=== PATIENT | female | born 1950 | race Caucasian/White ===

== ENCOUNTER → 2016-05-23 | Outpatient (CLI) | payer BC, OTHER ==
[~2016-05-23] MED LIST: ABL10 PO; ASPEC325 PO; ASPI-461 PO; ATV5 PO; B-CO1CAP17 PO; B-COCAP2 PO; CHOLTAB3 PO; CLTP PO; CONJ0.453 PO; CYM60 PO; ERGO1TAB10 PO; FSM70 PO; LAMO100T16 PO; LEVO50TA PO; LITH1TAB10 PO; LORA-741 PO; LPR25 PO; NAPR1TAB9 PO; OMEP20TA PO; OSTEO BIOFLEX PO; OXYC-57 PO; VENL150C56 PO
[2016-05-23 17:51] LABS: ALT/SGPT 20 U/L (12-78); AST/SGOT 17 U/L (15-37); BLOOD UREA NITROGEN 15 mg/dl (7-18); BUN/CREATININE RATIO 15.3 (10-20); CALCIUM 9.7 mg/dl (8.5-10.1); CARBON DIOXIDE 25 mmol/L (21-32); CHLORIDE 103 mmol/L (98-107); CHOLESTEROL 209 mg/dl (0-200); CREATININE 0.99 mg/dl (0.60-1.20); GLUCOSE 82 mg/dl (70-99); POTASSIUM 4.4 mmol/L (3.5-5.1); SODIUM 138 mmol/L (136-145)
[2016-05-23 18:00] LABS: ALKALINE PHOSPHATASE 110 U/L (45-117); CHOLESTEROL/HDL RATIO 2.8; HDL CHOLESTEROL 76 mg/dl; LDL CHOLESTEROL CALCULATED 107 mg/dl; TRIGLYCERIDES 129 mg/dl (0-150); VERY LOW DENSITY LIPOPROT CALC 26 mg/dl
== END | disposition home or self-care (01) ==
LOC: C.LABBFT 14:07
PROVIDERS: ATTEND Internal Medicine
DX: Z00.00 Encounter for general adult medical examination without abnormal findings (principal); F31.81 Bipolar II disorder; M81.0 Age-related osteoporosis without current pathological fracture; Z86.39 Personal history of other endocrine, nutritional and metabolic disease; Z11.59 Encounter for screening for other viral diseases

== ENCOUNTER → 2016-10-10 | Outpatient (CLI) | payer OTHER ==
[2016-10-10 16:45] LABS: ALT/SGPT 20 U/L (12-78); AST/SGOT 11 U/L (15-37); BLOOD UREA NITROGEN 24 mg/dl (7-18); BUN/CREATININE RATIO 26.3 (10-20); CALCIUM 9.5 mg/dl (8.5-10.1); CARBON DIOXIDE 31 mmol/L (21-32); CHLORIDE 106 mmol/L (98-107); CREATININE 0.91 mg/dl (0.60-1.20); GLUCOSE 83 mg/dl (70-99); POTASSIUM 4.9 mmol/L (3.5-5.1); SODIUM 138 mmol/L (136-145)
[2016-10-10 16:48] LABS: ALKALINE PHOSPHATASE 105 U/L (45-117)
[2016-10-14 16:41] LABS: ALBUMIN 4.4 G/DL (3.8-4.8); TOTAL PROTEIN 7.3 G/DL (6.2-8.3)
== END | disposition home or self-care (01) ==
LOC: C.LABBFT 15:33
PROVIDERS: ATTEND Internal Medicine
DX: F31.81 Bipolar II disorder (principal)

== ENCOUNTER 2016-10-31 10:56 | Inpatient (IN) | payer OTHER ==
[~2016-10-31] VITALS: Ht 167.6 cm; Wt 87.2 kg
[~2016-10-31 10:56] MED LIST changes: -ASPI-461 PO; -B-CO1CAP17 PO; -ERGO1TAB10 PO; -LAMO100T16 PO; -LEVO50TA PO; -LITH1TAB10 PO; -LORA-741 PO; -LPR25 PO; -NAPR1TAB9 PO; -OMEP20TA PO; -VENL150C56 PO
[2016-10-31 11:29] LABS: BASO % 1.3 %; BASO ABS # 0.09 K/uL (0-0.2); COMPLETE YES; EOS % 3.2 %; HEMATOCRIT 39.4 % (37-47); IG% 0.1 %; LYMPH % 22.6 %; LYMPH ABS # 1.62 K/uL (1.2-3.4); MEAN CELL VOLUME 92.3 fL (80-100); MEAN CORPUSCULAR HGB CONC 32.5 g/dl (32-36); MEAN PLATELET VOLUME 9.7 fL (7.4-10.4); MONO % 7.8 %; PLATELET COUNT 343 K/uL (130-400); RED BLOOD COUNT 4.27 M/uL (4.2-5.4); WHITE BLOOD COUNT 7.17 K/uL (4.8-10.8)
--- NOTE | 2016-10-31 11:43 | DIAGNOSTIC IMAGING REPORT ---
CHEST ONE VIEW PORTABLE CLINICAL HISTORY: 66 years-old Female presenting with cp . TECHNIQUE: Portable upright AP view of the chest was obtained. COMPARISON: 04/30/2010. FINDINGS: Cardiomediastinal silhouette normal. Lungs and pleural spaces clear. Osseous structures and upper abdomen normal. IMPRESSION: 1. No acute cardiopulmonary disease. Electronically signed by: Danyel Watters M.D. 10/31/2016 11:42 AM Dictated Date/Time: 10/31/2016 11:41 AM
[2016-10-31 11:50] LABS: ALT/SGPT 18 U/L (12-78); AST/SGOT 15 U/L (15-37); BLOOD UREA NITROGEN 11 mg/dl (7-18); BUN/CREATININE RATIO 12.2 (10-20); CALCIUM 9.7 mg/dl (8.5-10.1); CARBON DIOXIDE 26 mmol/L (21-32); CHLORIDE 109 mmol/L (98-107); CREATININE 0.86 mg/dl (0.60-1.20); GLUCOSE 112 mg/dl (70-99); SODIUM 139 mmol/L (136-145)
[2016-10-31] MEDS ORDERED: ASPI-461 PO (11:51)
[2016-10-31 11:55] LABS: ALKALINE PHOSPHATASE 89 U/L (45-117)
[2016-10-31] MEDS ORDERED: LORA-741 PO (11:55)
[2016-10-31] MEDS ORDERED: B-CO1CAP17 PO (11:55)
[2016-10-31] MEDS ORDERED: ERGO1TAB10 PO (11:55)
[2016-10-31] MEDS ORDERED: NAPR1TAB9 PO (11:55)
[2016-10-31] MEDS ORDERED: LAMO100T16 PO (12:05)
[2016-10-31] MEDS ORDERED: LITH1TAB10 PO ×2 (12:05)
[2016-10-31] MEDS ORDERED: VENL150C56 PO (12:05)
[2016-10-31] MEDS ORDERED: LEVO50TA PO (12:05)
--- NOTE | 2016-10-31 12:08 | DIAGNOSTIC IMAGING REPORT ---
ABD/PELVIS NO IV OR ORAL CONT CT DOSE: 894.55 mGycm HISTORY: Pain. Nausea. epigastric abd pain TECHNIQUE: Multiaxial CT images of the abdomen and pelvis were performed without contrast. A dose lowering technique was utilized adhering to the principles of ALARA. COMPARISON STUDY: None. FINDINGS: The lung bases are clear. The unenhanced liver, spleen, gallbladder, pancreas, kidneys, and adrenal glands are within normal limits. No bowel wall thickening or obstruction. The pelvic organs are unremarkable. No suspicious lytic or blastic osseous lesions. IMPRESSION: No significant abnormality identified within the abdomen or pelvis. Normal appendix. Nonobstructive bowel pattern. The above report was generated using voice recognition software. It may contain grammatical, syntax or spelling errors. Electronically signed by: Stephane Zamarripa M.D. 10/31/2016 12:06 PM Dictated Date/Time: 10/31/2016 12:03 PM
[2016-10-31 12:29] LABS: URINE APPEARANCE CLEAR (CLEAR); URINE BILIRUBIN NEG (NEG); URINE COLOR YELLOW; URINE EPITHELIAL CELL AUTO >30 /lpf (0-5); URINE NITRITE NEG (NEG); URINE PH 6.5 (4.5-7.5); URINE SPECIFIC GRAVITY 1.011 (1.000-1.030); UROBILINOGEN NEG (NEG); ZZUR CULT IF INDIC CLEAN CATCH NO
[2016-10-31 12:32] LABS: MANUAL MICROSCOPIC REQUIRED? NO; REVIEW REQ? NO
[2016-10-31] MEDS ORDERED: ASPIRIN 81 MG CHEW PO STA (13:08)
[2016-10-31] MEDS ORDERED: GI COCKTAIL PO ONE (13:15)
[2016-10-31] MEDS ORDERED: ALUMINUM/MAGNESIUM SUSP 30 ML UDC ONE (13:16)
[2016-10-31] MEDS ORDERED: LIDOCAINE HCL 2% VISC SOLN 20 ML UDC ONE (13:16)
[2016-10-31 15:45] VITALS: O2SAT 95; Ht 167.6 cm; Wt 87.2 kg
[2016-10-31] MEDS ORDERED: ZOLPIDEM TARTRATE 5 MG TAB PO PRN (16:00)
[2016-10-31] MEDS ORDERED: MAGNESIUM HYDROXIDE SUSP 30 ML UDC PO PRN (16:00)
[2016-10-31] MEDS ORDERED: MoRPHine SULFATE 2 MG/ML CARP IV PRN (16:00)
[2016-10-31] MEDS ORDERED: NITROGLYCERIN 0.4 MG SL PER TAB CHARGE SL PRN (16:00)
[2016-10-31] MEDS ORDERED: ALUMINUM/MAGNESIUM/SIMETH (MAALOX MAX) 30 ML UDC PO PRN (16:00)
[2016-10-31] MEDS ORDERED: POLYETHYLENE (MIRALAX) 17 GM PACK PO PRN (16:00)
[2016-10-31] MEDS ORDERED: ACETAMINOPHEN 325 MG TAB PO PRN (16:00)
--- NOTE | 2016-10-31 16:08 | EMERGENCY ROOM VISIT NOTE ---
History Report prepared by Malgorzata: Faina Sims Under the Supervision of: Dr. Morgan Amaro D.O. First contact with patient: 11:15 Chief Complaint: CARDIAC ASSESSMENT Stated Complaint: NAUSEA, CHEST PRESSURE, History of Present Illness The patient is a 66 year old female who presents to the Emergency Room for a cardiac assessment of symptoms that started 3 days ago. The patient states that she experienced abdominal pain and chest pain 3 days ago with associated gagging. She states that the pressure in her chest was relieved with burping. The patient has not experienced any chest pain since then. She is unsure of if she experienced shortness of breath when she had the chest pain. She denies any jaw pain or arm pain with the chest pain. The patient is still experiencing upper abdominal pain and states that it feels like there is a "brick" sitting on her abdomen/upper chest. The patient states that the abdominal pain is relieved with cough syrup. The patient is also experiencing nausea and vomiting which started last night. She experienced one episode of vomiting last night. The patient's last bowel movement was yesterday. She states that she called Dr. Thakkar this morning and then can here for further evaluation. The patient still has her gallbladder and appendix. Source of History: patient Onset: 3 days ago Position: chest Quality: other (cardiac assessment) Timing: constant Associated Symptoms: + chest pain (resolved), + nausea, + vomiting, + abdominal pain Note: no jaw pain, no arm pain Review of Systems See HPI for pertinent positives & negatives. A total of 10 systems reviewed and were otherwise negative. Past Medical & Surgical Medical Problems: (1) Bipolar Disorder, Unspecified (2) Osteoporosis Nos Family History Cancer Depression Diabetes mellitus Gallbladder disease Heart disease Hypertension Lung disease Seizures Social History Smoking Status: Former Smoker Alcohol Use: occasionally Marital Status: Housing Status: lives with family Current/Historical Medications Scheduled Aspirin (Aspirin), 1 TAB PO DAILY Ergocalciferol (Vitamin D2), 1 TAB PO DAILY Lamotrigine (Lamictal), 100 MG PO BID Levothyroxine Sodium (Synthroid), 50 MCG PO DAILY [place] Carbonate Ext Rel (Lithobid Ext Rel), 300 MG PO QAM [place] Carbonate Ext Rel (Lithobid Ext Rel), 900 MG PO HS Naproxen (Aleve), 440 MG PO UD Venlafaxine Hcl (Effexor Extended Rel), 150 MG PO BID Vitamin B Cmplx/Vitc/Folic Ac (Nephrocaps), 1 CAP PO DAILY Scheduled PRN Lorazepam (Ativan), 0.5 MG PO TID PRN for Anxiety Allergies Coded Allergies: Iodinated Contrast Media (Verified Allergy, Unknown, `IV IODINE, 04/30/10) Penicillins (Verified Allergy, Unknown, `, 04/30/10) Phenobarbital (Verified Allergy, Unknown, `, 04/30/10) Physical Exam Vital Signs Date Time Temp Pulse Resp B/P (MAP) Pulse Ox O2 Delivery O2 Flow Rate FiO2 10/31/16 15:45 95 Room Air 10/31/16 15:27 65 18 136/75 95 Room Air 10/31/16 13:19 70 18 140/77 96 Room Air 10/31/16 12:09 96 Room Air 10/31/16 12:08 69 18 153/80 96 Room Air 10/31/16 11:20 68 10/31/16 10:58 37.0 81 16 157/89 97 Room Air Physical Exam GENERAL: alert, siting up in bed, disheveled, well appearing, well nourished, no acute distress, non-toxic EYE EXAM: normal conjunctiva OROPHARYNX: no exudate, no erythema, lips, buccal mucosa, and tongue normal and mucous membranes are moist NECK: supple, no nuchal rigidity, no adenopathy, non-tender LUNGS: Clear to auscultation. Normal chest wall mechanics HEART: no murmurs, S1 normal and S2 normal ABDOMEN: abdomen soft, non-tender, normo-active bowel sounds, no masses, no rebound or guarding. BACK: Back is symmetrical on inspection and there is no deformity, no midline tenderness, no CVA tenderness. SKIN: no rashes and no bruising UPPER EXTREMITIES: upper extremities are grossly normal. LOWER EXTREMITIES: No pitting edema. NEURO EXAM: Normal sensorium, cranial nerves II-XII grossly intact, normal speech, no gross weakness of arms, no gross weakness of legs. Medical Decision & Procedures ER Provider Diagnostic Interpretation: Radiology results as stated below per my review and the radiologist's interpretation: CHEST ONE VIEW PORTABLE FINDINGS: Cardiomediastinal silhouette normal. Lungs and pleural spaces clear. Osseous structures and upper abdomen normal. IMPRESSION: 1. No acute cardiopulmonary disease. Electronically signed by: Danyel Watters M.D. 10/31/2016 11:42 AM Dictated Date/Time: 10/31/2016 11:41 AM ABD/PELVIS NO IV OR ORAL CONT FINDINGS: The lung bases are clear. The unenhanced liver, spleen, gallbladder, pancreas, kidneys, and adrenal glands are within normal limits. No bowel wall thickening or obstruction. The pelvic organs are unremarkable. No suspicious lytic or blastic osseous lesions. IMPRESSION: No significant abnormality identified within the abdomen or pelvis. Normal appendix. Nonobstructive bowel pattern. The above report was generated using voice recognition software. It may contain grammatical, syntax or spelling errors. Electronically signed by: Stephane Zamarripa M.D. 10/31/2016 12:06 PM Dictated Date/Time: 10/31/2016 12:03 PM Laboratory Results 10/31/16 11:17 Red Blood Count 4.27, Mean Corpuscular Volume 92.3, Mean Corpuscular Hemoglobin 30.0, Mean Corpuscular Hemoglobin Concent 32.5, Mean Platelet Volume 9.7, Neutrophils (%) (Auto) 65.0, Lymphocytes (%) (Auto) 22.6, Monocytes (%) (Auto) 7.8, Eosinophils (%) (Auto) 3.2, Basophils (%) (Auto) 1.3, Neutrophils # (Auto) 4.66, Lymphocytes # (Auto) 1.62, Monocytes # (Auto) 0.56, Eosinophils # (Auto) 0.23, Basophils # (Auto) 0.09 10/31/16 11:17 Test 10/31/16 11:17 10/31/16 12:10 White Blood Count 7.17 K/uL (4.8-10.8) Red Blood Count 4.27 M/uL (4.2-5.4) Hemoglobin 12.8 g/dL (12.0-16.0) Hematocrit 39.4 % (37-47) Mean Corpuscular Volume 92.3 fL (80-100) Mean Corpuscular Hemoglobin 30.0 pg (25-34) Mean Corpuscular Hemoglobin Concent 32.5 g/dl (32-36) Platelet Count 343 K/uL (130-400) Mean Platelet Volume 9.7 fL (7.4-10.4) Neutrophils (%) (Auto) 65.0 % Lymphocytes (%) (Auto) 22.6 % Monocytes (%) (Auto) 7.8 % Eosinophils (%) (Auto) 3.2 % Basophils (%) (Auto) 1.3 % Neutrophils # (Auto) 4.66 K/uL (1.4-6.5) Lymphocytes # (Auto) 1.62 K/uL (1.2-3.4) Monocytes # (Auto) 0.56 K/uL (0.11-0.59) Eosinophils # (Auto) 0.23 K/uL (0-0.5) Basophils # (Auto) 0.09 K/uL (0-0.2) RDW Standard Deviation 43.3 fL (36.4-46.3) RDW Coefficient of Variation 12.8 % (11.5-14.5) Immature Granulocyte % (Auto) 0.1 % Immature Granulocyte # (Auto) 0.01 K/uL (0.00-0.02) Anion Gap 4.0 mmol/L (3-11) Est Creatinine Clear Calc Drug Dose 71.1 ml/min Estimated GFR () 81.6 Estimated GFR (Non- 70.4 BUN/Creatinine Ratio 12.2 (10-20) Calcium Level 9.7 mg/dl (8.5-10.1) Total Bilirubin 0.3 mg/dl (0.2-1) Direct Bilirubin < 0.1 mg/dl (0-0.2) Aspartate Amino Transf (AST/SGOT) 15 U/L (15-37) Alanine Aminotransferase (ALT/SGPT) 18 U/L (12-78) Alkaline Phosphatase 89 U/L (45-117) Troponin I < 0.015 ng/ml (0-0.045) Total Protein 7.5 gm/dl (6.4-8.2) Albumin 3.8 gm/dl (3.4-5.0) Lipase 280 U/L (73-393) Urine Color YELLOW Urine Appearance CLEAR (CLEAR) Urine pH 6.5 (4.5-7.5) Urine Specific [place] 1.011 (1.000-1.030) Urine Protein NEG (NEG) Urine Glucose (UA) NEG (NEG) Urine Ketones NEG (NEG) Urine Occult Blood TRACE (NEG) Urine Nitrite NEG (NEG) Urine Bilirubin NEG (NEG) Urine Urobilinogen NEG (NEG) Urine Leukocyte Esterase TRACE (NEG) Urine WBC (Auto) 1-5 /hpf (0-5) Urine RBC (Auto) 5-10 /hpf (0-4) Urine Hyaline Casts (Auto) 0 /lpf (0-5) Urine Epithelial Cells (Auto) >30 /lpf (0-5) Urine Bacteria (Auto) NEG (NEG) Laboratory results per my review. Medications Administered Medications (Trade) Dose Ordered Sig/Armando Route Start Time Stop Time Status Last Admin Dose Admin Aspirin (Aspirin Chew) 324 mg NOW STAT PO 10/31/16 13:08 10/31/16 13:10 DC 10/31/16 13:21 324 MG Miscellaneous Medication (Gi Cocktail) 24 ml NOW ONCE PO 10/31/16 13:15 10/31/16 13:16 DC 10/31/16 13:15 24 ML ECG Indication: abdominal pain, chest pain Rate (beats per minute): 104 Rhythm: other (wide complex tachycardia) Findings: LBBB, other (normal axis, questionable retrograde p-waves) Comparison ECG Date: 04/30/2010 Change: Wide complex tachycardia is new Second EKG on 10/31/2016 revealed sinus rhythm, rate of 66, no ectopy, normal axis. ED Course ED COURSE: Vital signs were reviewed and showed tachycardia and hypertension. The patients medical record was reviewed The above diagnostic studies were performed and reviewed. ED treatments and interventions as stated above. 1117: The patient was evaluated in room C7. A complete history and physical examination was performed. 1242: I reviewed the patient's case with Dr. Quintanilla - Cardiology. He recommends admitting the patient to medicine. He will evaluate the patient as an inpatient. 1302: Upon reevaluation, the patient is resting comfortably. I discussed my findings with the patient and she understands and agrees with the treatment plan. Based on the patients age, coexisting illnesses, exam and lab findings the decision to treat as an inpatient was made. The patient remained stable while under my care. The patient will be evaluated for further management. 1308: Ordered Aspirin 324 mg PO 1310: I reviewed the patient's case with Dr. Matilde Bah of the [facility]. He will evaluate the patient for further management. 1315: Ordered GI Cocktail 24 ml PO Medical Decision Differential diagnoses includes but is not limited to gastritis, peptic ulcer disease, GERD, gallbladder disease, pancreatitis, small bowel obstruction, acute coronary syndrome, pericarditis, ischemic bowel, irritable bowel disease, irritable bowel syndrome, appendicitis, diverticulitis, malignancy, hernia, urinary tract infection, torsion, perforation, trauma, infectious. Patient is a 66-year-old female who presents the ER for chest pain associated with upper abdominal pain and nausea/vomiting 1. CBC along with BMP, LFTs, troponin and UA were unremarkable. Chest x-ray was benign. CT of abdomen and pelvis was negative. EKG initially was unremarkable but second showed a wide- complex tachycardia with a rate in the low 100s and possible retrograde P waves. I discussed my findings with cardiology and they agreed with observation which I felt was reasonable. Patient was updated at bedside and admitted for EKG changes associated with epigastric lower chest pain. Medication Reconcilliation Current Medication List: was personally reviewed by me Blood Pressure Screening Patient's blood pressure: Elevated blood pressure Blood pressure disposition: Elevated BP felt to be situational Consults Time Called: 1240 Consulting Physician: Dr. Quintanilla - Cardiology Returned Call: 1242 I reviewed the patient's case with Dr. Quintanilla - Cardiology. He recommends admitting the patient to medicine. He will evaluate the patient as an inpatient. Additional Consults: Time Called: 1303 Consulted Physician: Dr. Matilde Bah - [facility] [place] Returned Call: 1310 Additional Comments: I reviewed the patient's case with Dr. Matilde Bah of the [facility]. He will evaluate the patient for further management. Impression Primary Impression: Precordial chest pain Additional Impressions: Epigastric abdominal pain Wide-complex tachycardia Scribe Attestation The scribe's documentation has been prepared under my direction and personally reviewed by me in its entirety. I confirm that the note above accurately reflects all work, treatment, procedures, and medical decision making performed by me. Departure Information Dispostion Being Evaluated By Hospitalist Referrals Radha Thakkar M.D. (PCP) Patient Instructions My [facility] Problem Qualifiers
[2016-10-31] MEDS ORDERED: IV FLUIDS COMPLETED PRN (16:30)
--- NOTE | 2016-10-31 16:53 | HISTORY & PHYSICAL EXAMINATION ---
DATE OF ADMISSION: 10/31/2016 CHIEF COMPLAINT: Epigastric and left-sided chest pain. HISTORY OF PRESENT ILLNESS: The patient is a 66-year-old white female who has no significant past medical history. For the last 3 days she has been complaining of epigastric discomfort, heaviness with intermittent left-sided chest heaviness. The patient states that the pain is moderate and intermittent and accompanied with shortness of breath. The main feature that accompanied the pain is nausea. She is unsure if the pain is originally in the epigastric area or in the lower rib cage area and she thought that the left-sided chest pain is where the referred pain is. With her nausea, she only had one time vomiting yesterday, denies any blood in her vomitus. The patient called her primary care physician who adjusted her to come to the ED for further evaluation. REVIEW OF SYSTEMS: Denies any headache, double vision, blurry vision. Denies any palpitation. Denies any focal weakness, tingling or numbness. Denies any cough or sputum production. Admits to some intermittent shortness of breath. Denies any focal weakness, tingling, numbness. Denies any diarrhea, blood in the stool. Denies any burning sensation in the urine or blood. Denies any abnormal rash. Rest of the review of systems is negative. PAST MEDICAL HISTORY: Bipolar disorder and osteoporosis. FAMILY HISTORY: Heart disease in her father and grandfather. SOCIAL HISTORY: Former smoker, quit about 4-5 years ago. Drinks alcohol socially. , lives with her who does not smoke. CURRENT MEDICATIONS: At home 1. Aspirin. 2. Vitamin D supplement. 3. Lamictal 100 mg b.i.d. 4. Levothyroxine 50 mcg daily. 5. [place] carbonate 300 mg q.a.m. and 900 q.p.m. 6. Naproxen 7. Effexor Extended Release. 8. Vitamin B complex. 9. P.r.n. Ativan. ALLERGIES: PENICILLIN AND PHENOBARBITAL AND IV CONTRAST. PHYSICAL EXAMINATION: VITAL SIGNS: Temperature is 37, pulse is 70, respirations 18, blood pressure 140/77, pulse ox is 96% on room air. HEENT: No jaundice. No pallor with mucous membrane. GENERAL: The patient is average build, not in acute distress. NECK: Supple. HEART: S1, S2 normal. No gallop, rub or murmur. LUNGS: Clear to auscultation bilaterally. Normal chest wall expansion. ABDOMEN: Soft, nontender, nondistended. NEUROLOGIC: Awake, alert, oriented to time, place, and person. Moves all extremities. Sensation intact. Cranial nerves II through XII appear to be intact. EXTREMITIES: No edema, clubbing or cyanosis. SKIN: No rash on exposed skin area. PSYCHIATRIC: Appropriate process of thinking. Normal affect. DATA: Chest x-ray was within normal limits. CT scan of abdomen and pelvis was within normal limits. EKG, patient's initial EKG was within normal limits but then patient developed some wide-complex tachycardia while in ED. That was caught in EKG and spontaneously resolved. LABORATORY DATA: White blood cell count 7.1, hemoglobin 12.8, platelets 343. BUN is 11, creatinine 0.8, BUN is 11, sodium 139, potassium is 4. Urine has no any evidence of infection. The patient was given aspirin in the ED and GI cocktail. ASSESSMENT: 1. Epigastric/left-sided chest pain, rule out acute coronary syndrome. 2. Wide-complex tachycardia in Emergency Department, spontaneously resolved. 3. Bipolar disorder on lithium and Effexor. We will check lithium level. 4. Hypothyroidism, on Synthroid. We will check TSH. 5. Obesity. 6. Osteoporosis. PLAN: 1. Admit patient to telemetry. 2. Cardiology consult. 3. Echo in a.m. 4. N.p.o. from midnight for possible stress test. 5. Obtain lithium and TSH levels. 6. Serial cardiac enzymes. 7. Obtain hemoglobin A1c and lipid panel to stratify patient risk. 8. Continue home meds as needed. Will follow up patient.
[2016-10-31 17:45] VITALS: BP 157/94; PULSE 16; TEMP 37.2; O2SAT 96
[2016-10-31 18:48] LABS: PROTHROMBIN TIME (PATIENT) 10.5 SECONDS (9.0-12.0)
[2016-10-31 19:02] LABS: CHOLESTEROL 183 mg/dl (0-200); CHOLESTEROL/HDL RATIO 3.3; HDL CHOLESTEROL 56 mg/dl; LDL CHOLESTEROL CALCULATED 110 mg/dl; TRIGLYCERIDES 84 mg/dl (0-150); VERY LOW DENSITY LIPOPROT CALC 17 mg/dl
[2016-10-31 20:00] VITALS: O2SAT 92
[2016-10-31 20:28] VITALS: BP 147/79; PULSE 71; TEMP 37.1; O2SAT 96
[2016-10-31] MEDS: SODIUM CHLORIDE 0.9% 1000ML 1,000 ML IV SCH (20:39)
[2016-10-31] MEDS: HEPARIN SOD 5000 UNIT/0.5 ML CARP SQ SCH (20:39)
[2016-11-01] VITALS (10 sets, daily range): BP systolic 110–157; BP diastolic 79–93; PULSE 64–79; TEMP 36.4–37.1; O2SAT 94–96
[2016-11-01 04:17] LABS: BASO ABS # 0.08 K/uL (0-0.2); COMPLETE YES; EOS % 3.6 %; HEMATOCRIT 37.1 % (37-47); IG% 0.2 %; LYMPH % 25.6 %; LYMPH ABS # 2.08 K/uL (1.2-3.4); MEAN CELL VOLUME 92.1 fL (80-100); MEAN CORPUSCULAR HGB CONC 31.5 g/dl (32-36); MEAN PLATELET VOLUME 9.7 fL (7.4-10.4); NEUT % 61.6 %; PLATELET COUNT 324 K/uL (130-400); RED BLOOD COUNT 4.03 M/uL (4.2-5.4); WHITE BLOOD COUNT 8.11 K/uL (4.8-10.8)
[2016-11-01 04:35] LABS: ALT/SGPT 19 U/L (12-78); AST/SGOT 14 U/L (15-37); CALCIUM 9.2 mg/dl (8.5-10.1); CARBON DIOXIDE 25 mmol/L (21-32); CHLORIDE 109 mmol/L (98-107); CREATININE 0.83 mg/dl (0.60-1.20); GLUCOSE 102 mg/dl (70-99); MAGNESIUM 2.2 mg/dl (1.8-2.4); SODIUM 138 mmol/L (136-145)
[2016-11-01 04:40] LABS: ALKALINE PHOSPHATASE 87 U/L (45-117); PHOSPHORUS 3.3 mg/dl (2.5-4.9)
[2016-11-01 05:00] LABS: BLOOD UREA NITROGEN 19 mg/dl (7-18)
[2016-11-01] MEDS: HEPARIN SOD 5000 UNIT/0.5 ML CARP SQ SCH ×3 (05:55→21:29)
[2016-11-01] MEDS ORDERED: PERFLUTREN LIPID MICROSPHERE (DEFINITY) IV ONE (08:03)
[2016-11-01 08:41] LABS: ESTIMATED AVERAGE GLUCOSE 114 mg/dl; HA1C FLAG Normal (Normal)
[2016-11-01] MEDS ORDERED: LORAZEPAM 0.5 MG TAB PO PRN (09:00)
--- NOTE | 2016-11-01 09:42 | ECHOCARDIOGRAM REPORT ---
*NOTICE TO RECEIVING [employer]ENCY This information is strictly Confidential and protected under [place] law. [place] law prohibits you from making any further disclosure of this information unless further disclosure is expressly permitted by the written consent of the person to whom it pertains or is authorized by law. A general authorization for the release of medical or other information is not sufficient for this purpose. Hospital accepts no responsibility if the information is made available to any other person, INCLUDING THE PATIENT. Interpretation Summary * Name: SUREKHA GARSIA Study Date: 11/01/2016 07:39 AM BP: 110/80 mmHg * Patient Location: C.2E\S\E211\S\1 HR: 68 * : 1950 (M/d/yyyy) Gender: Female Height: 66 in * Age: 66 yrs Ethnicity: [place] Weight: 193 lb * Ordering Physician: Damien Price * Referring Physician: Self, Referred * Performed By: Arin Diaz RCS * * Reason For Study: Ischemic Cardiomyopathy * BSA: 2.0 m2 * -- Conclusions -- * Left ventricular systolic function is normal. * Grade I diastolic dysfunction, (abnormal relaxation pattern). Procedure Details * A contrast injection of Definity was performed to improve assessment of LV function. * Contrast was injected into an intravenous site in the right arm. * One vial of Definity ultrasound contrast was diluted in normal saline to a total volume of 10 ml. A total of '4' ml of solution was administered during imaging. * Lot # [id number] of Definity utilized for procedure. * Expiration date 1AUG. * The attending nurse who injected the contrast agent was Rasheed Ellison RN. Left Ventricle * The left ventricle is normal in size. * There is normal left ventricular wall thickness. * Ejection Fraction = 65-70%. * Left ventricular systolic function is normal. * Grade I diastolic dysfunction, (abnormal relaxation pattern). Right Ventricle * The right ventricular cavity size is normal (basal dimension <4.2 cm in right ventricular apical 4-chamber view). * The right ventricle is normal in size and function. Atria * The left atrial size is normal. * Right atrial size is normal. Mitral Valve * The mitral valve is grossly normal. * Significant mitral regurgitation is absent. Tricuspid Valve * The tricuspid valve is not well visualized, but is grossly normal. * There is trace tricuspid regurgitation. * Right ventricular systolic pressure is normal. Aortic Valve * The aortic valve is normal in structure and function. * No hemodynamically significant valvular aortic stenosis. * There is no significant aortic regurgitation. Great Vessels * The aortic root is normal size. Pericardium/Pleural * There is no pericardial effusion. MMode 2D Measurements and Calculations IVSd 0.93 cm LVIDd 4.5 cm LVIDs 2.7 cm LVPWd 0.97 cm IVS/LVPW 0.95 FS 39.2 % EDV(Teich) 93.0 ml ESV(Teich) 28.1 ml EF(Teich) 69.8 % EDV(cubed) 91.9 ml ESV(cubed) 20.6 ml EF(cubed) 77.6 % LV mass(C)d 143.7 grams LV mass(C)dI 72.9 grams/m\S\2 SV(Teich) 65.0 ml SI(Teich) 33.0 ml/m\S\2 SV(cubed) 71.3 ml SI(cubed) 36.2 ml/m\S\2 Ao root diam 2.8 cm Ao root area 6.3 cm\S\2 LVOT diam 1.9 cm LVOT area 2.7 cm\S\2 LVAd ap4 28.2 cm\S\2 LVLd ap4 7.8 cm EDV(MOD-sp4) 81.6 ml EDV(sp4-el) 86.6 ml LVAs ap4 12.1 cm\S\2 LVLs ap4 5.8 cm ESV(MOD-sp4) 20.9 ml ESV(sp4-el) 21.5 ml EF(MOD-sp4) 74.3 % EF(sp4-el) 75.1 % LVAd ap2 30.2 cm\S\2 LVLd ap2 7.8 cm EDV(MOD-sp2) 96.3 ml EDV(sp2-el) 99.5 ml LVAs ap2 13.8 cm\S\2 LVLs ap2 5.8 cm ESV(MOD-sp2) 28.2 ml ESV(sp2-el) 27.9 ml EF(MOD-sp2) 70.7 % EF(sp2-el) 71.9 % LVLd %diff 0.02 % EDV(MOD-bp) 89.2 ml LVLs %diff 0.10 % ESV(MOD-bp) 24.3 ml EF(MOD-bp) 72.8 % SV(MOD-sp4) 60.6 ml SI(MOD-sp4) 30.8 ml/m\S\2 SV(MOD-sp2) 68.1 ml SI(MOD-sp2) 34.6 ml/m\S\2 SV(MOD-bp) 64.9 ml SI(MOD-bp) 33.0 ml/m\S\2 SV(sp4-el) 65.0 ml SI(sp4-el) 33.0 ml/m\S\2 SV(sp2-el) 71.6 ml SI(sp2-el) 36.3 ml/m\S\2 Doppler Measurements and Calculations MV E max leora 83.6 cm/sec MV A max leora 96.5 cm/sec MV E/A 0.87 MV dec time 0.23 sec Ao V2 max 167.8 cm/sec Ao max PG 11.3 mmHg Ao max PG (full) 5.8 mmHg CHENTE(V,A) 1.9 cm\S\2 CHENTE(V,D) 1.9 cm\S\2 LV V1 max PG 5.5 mmHg LV V1 max 117.1 cm/sec TR max leora 223.2 cm/sec
[2016-11-01] MEDS: LITHIUM CARBONATE SR 300 MG TAB (LITHOBID) PO SCH ×2 (10:06→21:28)
[2016-11-01] MEDS: FAMOTIDINE 20 MG TAB PO SCH (10:06)
[2016-11-01] MEDS: ASPIRIN 325 MG ECTAB PO SCH (10:06)
[2016-11-01] MEDS: VENLAFAXINE HCL XR 150 MG CAPXR PO SCH ×2 (10:07→21:27)
[2016-11-01] MEDS: LEVOTHYROXINE 50 MCG TAB PO SCH (10:07)
--- NOTE | 2016-11-01 11:47 | Cardiology Consultation ---
Cardiology Consultation Date of Consultation: Nov 01, 2016. Requesting Physician: Larry Reason for Consultation: Tachycardia History of Present Illness Patient is a 66-year-old woman without a known history of cardiac disease who presented to the emergency room after referral from her primary care physician for symptoms of epigastric and chest discomfort. Patient states that on Friday of this week she began experience left-sided epigastric and lower chest discomfort. She describes this as a pressure-type sensation. She has not described overtly as pain. She did have some associated nausea and eventually vomiting on Friday of this month. The symptoms were fairly constant in nature but waxed and waned in severity. She did not have associated breathing difficulty. She denies any symptoms of dizziness or lightheadedness. She is aware of only brief and fleeting palpitations on occasion, that are not associated with other symptoms. She has not described any syncopal episodes. Overall she is an active individual was able to engage in routine activity without significant limitation. She is not perform routine vigorous exercise. She is able to go shopping and tender garden without limiting symptoms of dyspnea or chest discomfort. She is accustomed to walking her dog up hills. She recalls performing a stress test in the past. At the time of this interview the patient continues to have some mild symptoms. She states that last night she did have more severe discomfort in the same location. Past Medical/Surgical History Bipolar disorder Depression Anxiety Osteoporosis Surgical history Ankle surgery Tonsillectomy Wrist fracture Family History Cancer Depression Diabetes mellitus Gallbladder disease Heart disease Hypertension Lung disease Seizures Social History Smoking Status: Former Smoker History of Alcohol Use: Yes (BEER AND WINE, SOCAILLY- once a week) Review of Systems Constitutional: + see HPI Respiratory: + see HPI Abdomen: + see HPI Female : + see HPI Neurologic: + see HPI Heme: + see HPI Endo: + see HPI Skin: + see HPI All Other Systems: Reviewed and Negative Allergies Coded Allergies: Iodinated Contrast Media (Verified Allergy, Unknown, `IV IODINE, 04/30/10) Penicillins (Verified Allergy, Unknown, `, 04/30/10) Phenobarbital (Verified Allergy, Unknown, `, 04/30/10) Medications Current Inpatient Medications Medications (Trade) Dose Ordered Sig/Armando Route Start Time Stop Time Status Last Admin Dose Admin Heparin Sodium (Porcine) (Heparin Sq 5000 Unit/0.5ml) 5,000 unit Q8 SQ 10/31/16 22:00 11/30/16 21:59 11/01/16 05:55 5,000 UNIT Sodium Chloride 1,000 ml @ 50 mls/hr Q20H IV 10/31/16 15:50 11/30/16 15:49 10/31/16 20:39 50 MLS/HR Acetaminophen (Tylenol Tab) 650 mg Q4H PRN PO 10/31/16 16:00 11/30/16 15:59 11/01/16 04:26 650 MG Al Hydrox/Mg Hydrox/Simethicone (Maalox Max Susp) 15 ml Q4H PRN PO 10/31/16 16:00 11/30/16 15:59 11/01/16 04:28 15 ML Magnesium Hydroxide (Milk Of Magnesia Susp) 30 ml Q12H PRN PO 10/31/16 16:00 11/30/16 15:59 Zolpidem Tartrate (Ambien Tab) 5 mg HSZ PRN PO 10/31/16 16:00 11/30/16 15:59 Nitroglycerin (Nitrostat Tab) 0.4 mg UD PRN SL 10/31/16 16:00 11/30/16 15:59 11/01/16 04:04 0.4 MG Morphine Sulfate (MoRPHine SULFATE INJ) 2 mg Q30M PRN IV 10/31/16 16:00 11/14/16 15:59 Aspirin (Ecotrin Tab) 325 mg QAM PO 11/01/16 09:00 12/01/16 08:59 11/01/16 10:06 325 MG Polyethylene (Miralax Powder Packet) 17 gm DAILY PRN PO 10/31/16 16:00 11/30/16 15:59 Famotidine (Pepcid Tab) 20 mg QAM PO 11/01/16 09:00 12/01/16 08:59 11/01/16 10:06 20 MG Miscellaneous (Iv Fluids Completed) 1 ea PRN PRN N/A 10/31/16 16:30 10/31/17 16:29 Lamotrigine (Lamictal Tab) 100 mg BID PO 11/01/16 09:00 12/01/16 08:59 11/01/16 10:07 100 MG Levothyroxine Sodium (Synthroid Tab) 50 mcg DAILYBB PO 11/01/16 09:00 12/01/16 08:59 11/01/16 10:07 50 MCG [place] Carbonate (Lithobid Tab) 300 mg QAM PO 11/01/16 09:00 12/01/16 08:59 11/01/16 10:06 300 MG [place] Carbonate (Lithobid Tab) 900 mg HS PO 11/01/16 21:00 12/01/16 20:59 Lorazepam (Ativan Tab) 0.5 mg TID PRN PO 11/01/16 09:00 12/01/16 08:59 Venlafaxine HCl (effeXOR EXTENDED REL CAP) 150 mg BID PO 11/01/16 09:00 12/01/16 08:59 11/01/16 10:07 150 MG Physical Exam Vital Signs Past 12 Hours Date Time Temp Pulse Resp B/P (MAP) Pulse Ox O2 Delivery O2 Flow Rate FiO2 11/01/16 08:00 36.9 68 18 141/86 (104) 94 Room Air 11/01/16 08:00 Room Air 11/01/16 04:40 37.1 11/01/16 04:10 71 110/80 (90) 11/01/16 04:00 Room Air 11/01/16 03:57 64 148/89 (108) 95 Room Air 11/01/16 00:04 36.7 70 18 147/87 (107) 95 Room Air 10/31/16 23:59 Room Air She is alert and oriented x3. Mood affect appear normal. She answered all questions appropriately. HEENT: Sclerae are anicteric. Pupils are equal and reactive to light and accommodation. Extraocular movements were intact. Neuro: Cranial nerves intact Neck: Examination of the submandibular region did not reveal any significant lymphadenopathy. Carotids are palpable bilaterally and free of bruits on auscultation. There was no evidence of jugular venous distention. The thyroid was not enlarged. Lungs: Lungs are clear to auscultation bilaterally. There are no rales wheezes or rhonchi. She has normal respiratory effort without use of accessory muscles. There is normal pulmonary excursion. Cardiac: The rhythm was regular. S1 and S2 were normal. There are no murmurs on examination. The PMI was not markedly displaced on palpation. Abdomen: The abdomen was soft and nontender. Extremities: Patient has bilateral radial pulses that are equal in intensity. There is no evidence cyanosis or clubbing. There was no evidence of significant peripheral edema bilaterally. Skin: There are no rashes noted on examination today. Data Laboratory Results: Last 24 Hours Test 10/31/16 12:10 10/31/16 18:15 10/31/16 21:55 11/01/16 04:08 Urine Color YELLOW Urine Appearance CLEAR Urine pH 6.5 Urine Specific [place] 1.011 Urine Protein NEG Urine Glucose (UA) NEG Urine Ketones NEG Urine Occult Blood TRACE Urine Nitrite NEG Urine Bilirubin NEG Urine Urobilinogen NEG Urine Leukocyte Esterase TRACE Urine WBC (Auto) 1-5 /hpf Urine RBC (Auto) 5-10 /hpf Urine Hyaline Casts (Auto) 0 /lpf Urine Epithelial Cells (Auto) >30 /lpf Urine Bacteria (Auto) NEG Prothrombin Time 10.5 SECONDS Prothromb Time International Ratio 1.0 D-Dimer 240 ug/L FEU Troponin I < 0.015 ng/ml < 0.015 ng/ml < 0.015 ng/ml Triglycerides Level 84 mg/dl Cholesterol Level 183 mg/dl HDL Cholesterol 56 mg/dl LDL Cholesterol, Calculated 110 mg/dl VLDL Cholesterol, Calculated 17 mg/dl Cholesterol/HDL Ratio 3.3 Total Creatine Kinase 44 U/L 40 U/L White Blood Count 8.11 K/uL Red Blood Count 4.03 M/uL Hemoglobin 11.7 g/dL Hematocrit 37.1 % Mean Corpuscular Volume 92.1 fL Mean Corpuscular Hemoglobin 29.0 pg Mean Corpuscular Hemoglobin Concent 31.5 g/dl Platelet Count 324 K/uL Mean Platelet Volume 9.7 fL Neutrophils (%) (Auto) 61.6 % Lymphocytes (%) (Auto) 25.6 % Monocytes (%) (Auto) 8.0 % Eosinophils (%) (Auto) 3.6 % Basophils (%) (Auto) 1.0 % Neutrophils # (Auto) 4.99 K/uL Lymphocytes # (Auto) 2.08 K/uL Monocytes # (Auto) 0.65 K/uL Eosinophils # (Auto) 0.29 K/uL Basophils # (Auto) 0.08 K/uL RDW Standard Deviation 43.1 fL RDW Coefficient of Variation 12.7 % Immature Granulocyte % (Auto) 0.2 % Immature Granulocyte # (Auto) 0.02 K/uL Sodium Level 138 mmol/L Potassium Level 4.0 mmol/L Chloride Level 109 mmol/L Carbon Dioxide Level 25 mmol/L Anion Gap 4.0 mmol/L Blood Urea Nitrogen 19 mg/dl Creatinine 0.83 mg/dl Est Creatinine Clear Calc Drug Dose 74.4 ml/min Estimated GFR () 85.2 Estimated GFR (Non- 73.5 BUN/Creatinine Ratio 23.0 Random Glucose 102 mg/dl Estimated Average Glucose 114 mg/dl Hemoglobin A1c 5.6 % Lactic Acid Level 0.5 mmol/L Calcium Level 9.2 mg/dl Phosphorus Level 3.3 mg/dl Magnesium Level 2.2 mg/dl Total Bilirubin 0.3 mg/dl Aspartate Amino Transf (AST/SGOT) 14 U/L Alanine Aminotransferase (ALT/SGPT) 19 U/L Alkaline Phosphatase 87 U/L Total Protein 6.9 gm/dl Albumin 3.4 gm/dl Globulin 3.5 gm/dl Albumin/Globulin Ratio 1.0 Test 11/01/16 10:09 11/01/16 10:40 Total Creatine Kinase 41 U/L Troponin I < 0.015 ng/ml [place] Level 0.8 mMOL/L Imaging: Chest x-ray was unremarkable EKG: Initial EKG did demonstrate a wide complex tachycardia with retrograde P waves. Main EKGs essentially normal Telemetry reviewed: Intermittent episodes of wide complex tachycardia lasting 30 seconds to up to 2 minutes. Echocardiogram: Normal LV systolic function. Normal RV dimension and function. Assessment & Plan 1. Chest pain: Patient had some atypical symptoms that included some epigastric abdominal and chest discomfort. This was not described as pain. Was associated with a gastrointestinal symptoms. The symptoms themselves are fairly prolonged in duration lasting several days without significant resolution. In the presence of normal cardiac biomarkers at think we can essentially discount this as an acute coronary syndrome. She does not report other symptoms that would be consistent with angina or coronary insufficiency. 2. Ventricular tachycardia: A close examination of the patient's recordings would suggest that this is ventricular in origin. She has retrograde P waves which could be indicative of a reentrant SVT. The overall rates are somewhat slow hovering around 100 beats per minute. She does not have symptoms associated with the arrhythmia. I suspect she has had this for some time and that this was simply discovered due to her presentation at the hospital. Her echocardiogram earlier today was normal. I think we can perform an evaluation for cardiac ischemia. If her ischemic evaluation is normal, I think we can describe this as an idiopathic VT. Based on the morphology it is likely an outflow tract variety. This has a good prognosis overall and may respond to beta blockade.
[2016-11-01] MEDS: SODIUM CHLORIDE 0.9% 1000ML 1,000 ML IV SCH ×2 (11:50→20:40)
--- NOTE | 2016-11-01 15:10 | DOBUTAMINE ECHO ---
*NOTICE TO RECEIVING CONSTITUTION PARTY AGENCY This information is strictly Confidential and protected under [place] law. [place] law prohibits you from making any further disclosure of this information unless further disclosure is expressly permitted by the written consent of the person to whom it pertains or is authorized by law. A general authorization for the release of medical or other information is not sufficient for this purpose. Hospital accepts no responsibility if the information is made available to any other person, INCLUDING THE PATIENT. Interpretation Summary * Name: SUREKHA GARSIA Study Date: 11/01/2016 02:05 PM BP: 135/74 mmHg * Patient Location: C.2E\S\E211\S\1 HR: 68 * : 1950 (M/d/yyyy) Gender: Female Height: 65 in * Age: 66 yrs Ethnicity: [place] Weight: 193 lb * Ordering Physician: Marbin Garcia * Referring Physician: Self, Referred * Performed By: Arin Diaz RCS * * Reason For Study: VT * BSA: 1.9 m2 * -- Conclusions -- * Positive exercise echocardiogram for inducible ischemia Procedure Details * A contrast injection of Definity was performed to improve assessment for apical thrombus. * Contrast was injected into an intravenous site in the right arm. * One vial of Definity ultrasound contrast was diluted in normal saline to a total volume of 10 ml. A total of '4' ml of solution was administered during imaging. * Lot # [id number] of Definity utilized for procedure. * Expiration date 1A. * The attending nurse who injected the contrast agent was Syeda Barahona RN. Left Ventricular Findings with Stress * Positive exercise echocardiogram for inducible ischemia Stress Parameters * Normal baseline electrocardiogram. * Stress ECG: No ST changes. No arrhythmias. * The stress portion of this study was personally supervised by the undersigned interpreting physician. * Rest heart rate was '134' BPM. * Rest blood pressure was '135/74' * Maximum heart rate achieved was 134 bpm. * Maximum heart rate was 87 % of maximum age-predicted heart rate. * Maximum blood pressure was '218/71' * Total exercise time was '2:02' * Maximum exercise MET level achieved was '4.6' METS * Maximum treadmill speed was '1.7' miles per hour. * Maximum treadmill elevation was '10'% grade. * Exercise was terminated due to 'FATIGUE' * Exercise was stopped due to fatigue. Left Ventricular Findings with Stress * Overall very poor exercise tolerance. Terminated due to fatigue and dyspnea Normal baseline EKG without EKG changes Normal baseline echocardiogram with por augmentation and inducible wall motion abnormality involving the anterior wall.
--- NOTE | 2016-11-01 16:28 | Progress Note ---
Subjective Date of Service: Nov 01, 2016. Subjective Pt evaluation today including: conversation w/ patient, physical exam, lab review, review of studies, conversation w/ [employer] consultant, review of inpatient medication list Pain: no further chest pain or epigastric pain PO Intake: adequate Voiding: no voiding problems patient feeling well today, no chest pain or epigastric pain reviewed results of testing, troponin negative, normal sinus on EKG on monitor, continued to have runs of wide complex rhythm but rates in 90-100's initial resting echocardiogram was normal exercise stress echo performed with Dr. Garcia, very poor exercise tolerance, only 2 minutes with dyspnea, fatigue had to stop repeat echo showed anterior wall motion abnormality, no EKG changes seen Problem List Medical Problems: (1) Bipolar Disorder, Unspecified Status: Chronic (2) Epigastric abdominal pain Status: Acute (3) Osteoporosis Nos Status: Chronic (4) Precordial chest pain Status: Acute (5) Wide-complex tachycardia Status: Acute Review of Systems All Other Systems: Reviewed and Negative Medications Current Inpatient Medications Medications (Trade) Dose Ordered Sig/Armando Route Start Time Stop Time Status Last Admin Dose Admin Heparin Sodium (Porcine) (Heparin Sq 5000 Unit/0.5ml) 5,000 unit Q8 SQ 10/31/16 22:00 11/30/16 21:59 11/01/16 13:28 5,000 UNIT Sodium Chloride 1,000 ml @ 50 mls/hr Q20H IV 10/31/16 15:50 11/30/16 15:49 10/31/16 20:39 50 MLS/HR Acetaminophen (Tylenol Tab) 650 mg Q4H PRN PO 10/31/16 16:00 11/30/16 15:59 11/01/16 04:26 650 MG Al Hydrox/Mg Hydrox/Simethicone (Maalox Max Susp) 15 ml Q4H PRN PO 10/31/16 16:00 11/30/16 15:59 11/01/16 04:28 15 ML Magnesium Hydroxide (Milk Of Magnesia Susp) 30 ml Q12H PRN PO 10/31/16 16:00 11/30/16 15:59 Zolpidem Tartrate (Ambien Tab) 5 mg HSZ PRN PO 10/31/16 16:00 11/30/16 15:59 Nitroglycerin (Nitrostat Tab) 0.4 mg UD PRN SL 10/31/16 16:00 11/30/16 15:59 11/01/16 04:04 0.4 MG Morphine Sulfate (MoRPHine SULFATE INJ) 2 mg Q30M PRN IV 10/31/16 16:00 11/14/16 15:59 Aspirin (Ecotrin Tab) 325 mg QAM PO 11/01/16 09:00 12/01/16 08:59 11/01/16 10:06 325 MG Polyethylene (Miralax Powder Packet) 17 gm DAILY PRN PO 10/31/16 16:00 11/30/16 15:59 Famotidine (Pepcid Tab) 20 mg QAM PO 11/01/16 09:00 12/01/16 08:59 11/01/16 10:06 20 MG Miscellaneous (Iv Fluids Completed) 1 ea PRN PRN N/A 10/31/16 16:30 10/31/17 16:29 Lamotrigine (Lamictal Tab) 100 mg BID PO 11/01/16 09:00 12/01/16 08:59 11/01/16 10:07 100 MG Levothyroxine Sodium (Synthroid Tab) 50 mcg DAILYBB PO 11/01/16 09:00 12/01/16 08:59 11/01/16 10:07 50 MCG [place] Carbonate (Lithobid Tab) 300 mg QAM PO 11/01/16 09:00 12/01/16 08:59 11/01/16 10:06 300 MG [place] Carbonate (Lithobid Tab) 900 mg HS PO 11/01/16 21:00 12/01/16 20:59 Lorazepam (Ativan Tab) 0.5 mg TID PRN PO 11/01/16 09:00 12/01/16 08:59 Venlafaxine HCl (effeXOR EXTENDED REL CAP) 150 mg BID PO 11/01/16 09:00 12/01/16 08:59 11/01/16 10:07 150 MG Objective Vital Signs Date Time Temp Pulse Resp B/P (MAP) Pulse Ox O2 Delivery O2 Flow Rate FiO2 11/01/16 16:04 36.4 79 18 157/93 (114) 96 Room Air 11/01/16 12:00 Room Air 11/01/16 12:00 36.9 78 16 148/87 (107) 95 Room Air 11/01/16 08:00 36.9 68 18 141/86 (104) 94 Room Air 11/01/16 08:00 Room Air 11/01/16 04:40 37.1 11/01/16 04:10 71 110/80 (90) 11/01/16 04:00 Room Air 11/01/16 03:57 64 148/89 (108) 95 Room Air 11/01/16 00:04 36.7 70 18 147/87 (107) 95 Room Air 10/31/16 23:59 Room Air 10/31/16 20:28 37.1 71 20 147/79 (101) 96 Room Air 10/31/16 20:00 92 Room Air 10/31/16 17:45 37.2 16 18 157/94 (115) 96 Room Air 10/31/16 17:06 70 18 125/77 95 Room Air Physical Exam General Appearance: WD/WN, no apparent distress Eyes: normal inspection, EOMI, sclerae normal ENT: normal ENT inspection, hearing grossly normal, pharynx normal Neck: supple, no adenopathy, no JVD, trachea midline Respiratory/Chest: chest non-tender, lungs clear, normal breath sounds, no respiratory distress, no accessory muscle use Cardiovascular: regular rate, rhythm, no edema, no gallop, no JVD, no murmur Abdomen: normal bowel sounds, non tender, soft, no organomegaly Extremities: normal range of motion, non-tender, normal inspection, no pedal edema, no calf tenderness, pelvis stable 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, no motor/sensory deficits, alert, normal mood/affect, oriented x 3 Skin: normal color, warm/dry, no rash Laboratory Results Last 24 Hours Test 10/31/16 18:15 10/31/16 21:55 11/01/16 04:08 11/01/16 10:09 Prothrombin Time 10.5 SECONDS Prothromb Time International Ratio 1.0 D-Dimer 240 ug/L FEU Troponin I < 0.015 ng/ml < 0.015 ng/ml < 0.015 ng/ml < 0.015 ng/ml Triglycerides Level 84 mg/dl Cholesterol Level 183 mg/dl HDL Cholesterol 56 mg/dl LDL Cholesterol, Calculated 110 mg/dl VLDL Cholesterol, Calculated 17 mg/dl Cholesterol/HDL Ratio 3.3 Total Creatine Kinase 44 U/L 40 U/L 41 U/L White Blood Count 8.11 K/uL Red Blood Count 4.03 M/uL Hemoglobin 11.7 g/dL Hematocrit 37.1 % Mean Corpuscular Volume 92.1 fL Mean Corpuscular Hemoglobin 29.0 pg Mean Corpuscular Hemoglobin Concent 31.5 g/dl Platelet Count 324 K/uL Mean Platelet Volume 9.7 fL Neutrophils (%) (Auto) 61.6 % Lymphocytes (%) (Auto) 25.6 % Monocytes (%) (Auto) 8.0 % Eosinophils (%) (Auto) 3.6 % Basophils (%) (Auto) 1.0 % Neutrophils # (Auto) 4.99 K/uL Lymphocytes # (Auto) 2.08 K/uL Monocytes # (Auto) 0.65 K/uL Eosinophils # (Auto) 0.29 K/uL Basophils # (Auto) 0.08 K/uL RDW Standard Deviation 43.1 fL RDW Coefficient of Variation 12.7 % Immature Granulocyte % (Auto) 0.2 % Immature Granulocyte # (Auto) 0.02 K/uL Sodium Level 138 mmol/L Potassium Level 4.0 mmol/L Chloride Level 109 mmol/L Carbon Dioxide Level 25 mmol/L Anion Gap 4.0 mmol/L Blood Urea Nitrogen 19 mg/dl Creatinine 0.83 mg/dl Est Creatinine Clear Calc Drug Dose 74.4 ml/min Estimated GFR () 85.2 Estimated GFR (Non- 73.5 BUN/Creatinine Ratio 23.0 Random Glucose 102 mg/dl Estimated Average Glucose 114 mg/dl Hemoglobin A1c 5.6 % Lactic Acid Level 0.5 mmol/L Calcium Level 9.2 mg/dl Phosphorus Level 3.3 mg/dl Magnesium Level 2.2 mg/dl Total Bilirubin 0.3 mg/dl Aspartate Amino Transf (AST/SGOT) 14 U/L Alanine Aminotransferase (ALT/SGPT) 19 U/L Alkaline Phosphatase 87 U/L Total Protein 6.9 gm/dl Albumin 3.4 gm/dl Globulin 3.5 gm/dl Albumin/Globulin Ratio 1.0 Test 11/01/16 10:40 11/01/16 15:46 [place] Level 0.8 mMOL/L Assessment and Plan ASSESSMENT: 66 yo female with epigastric pain, vomiting, dyspnea found to have wide complex tachycardia in the ED on monitor and EKG - Epigastric pain: ruled out for ACS with normal troponin x [address] or TW changes on EKG however, there was evidence of cardiac ischemia on exercise stress test with fatigue and wall motion abnormalities Dr. Garcia recommends heart cath on Friday - Wide complex ventricular rhythm: occurs intermittently, no symptoms, typical rates are 90-100's appears to be ventricular in origin, inverted P waves, possible re-entry arrhythmia could be due to ischemia, will need heart cath on Friday consider beta blockers, cardiology to decide - Hypothyroidism: TSH normal - Bipolar d/o: [place] level normal, continue [place] and Effexor
[2016-11-02] VITALS (7 sets, daily range): BP systolic 107–148; BP diastolic 60–87; PULSE 59–74; TEMP 36.7–37.2; O2SAT 93–96
[2016-11-02] MEDS: HEPARIN SOD 5000 UNIT/0.5 ML CARP SQ SCH ×3 (06:15→20:47)
[2016-11-02] MEDS: LEVOTHYROXINE 50 MCG TAB PO SCH (06:45)
[2016-11-02] MEDS: SODIUM CHLORIDE 0.9% 1000ML 1,000 ML IV SCH (08:05)
[2016-11-02] MEDS: ASPIRIN 325 MG ECTAB PO SCH (08:06)
[2016-11-02] MEDS: VENLAFAXINE HCL XR 150 MG CAPXR PO SCH ×2 (08:06→20:28)
[2016-11-02] MEDS: FAMOTIDINE 20 MG TAB PO SCH (08:07)
[2016-11-02] MEDS: LITHIUM CARBONATE SR 300 MG TAB (LITHOBID) PO SCH ×2 (08:57→20:28)
--- NOTE | 2016-11-02 10:33 | Cardiology Follow-Up ---
Subjective Date of Service: Nov 02, 2016. Pt evaluation today including: conversation w/ patient, physical exam, chart review, lab review, review of studies History of Present Illness Patient claims to be feeling well today. Her GI symptoms appear to have resolved. She is eating normally. No significant epigastric or chest discomfort. She is not aware of any palpitations. She has not had any dizzy episodes.. Social History Smoking Status: Former Smoker History of Alcohol Use: Yes (BEER AND WINE, SOCAILLY- once a week) Review of Systems Respiratory: + see HPI Objective Vital Signs Past 12 Hours Date Time Temp Pulse Resp B/P (MAP) Pulse Ox O2 Delivery O2 Flow Rate FiO2 11/02/16 08:06 37.1 68 18 131/77 (95) 96 Room Air 11/02/16 04:00 Room Air 11/02/16 03:23 36.7 62 18 148/87 (107) 96 Room Air 11/01/16 23:59 Room Air 11/01/16 23:20 36.7 72 18 145/79 (101) 96 Room Air Last Recorded Weight-Kilograms: 87.700 Physical Exam She is alert and oriented x3. Mood affect appear normal. She answered all questions appropriately. HEENT: Sclerae are anicteric. Pupils are equal and reactive to light and accommodation. Extraocular movements were intact. Neuro: Cranial nerves intact Cardiac: The rhythm was regular. S1 and S2 were normal. There are no murmurs on examination. Data Laboratory Results: Last 24 Hours Test 11/01/16 10:40 11/01/16 15:46 [place] Level 0.8 mMOL/L Total Creatine Kinase 39 U/L Troponin I < 0.015 ng/ml Imaging: Echocardiogram obtained yesterday revealed preserved LV systolic function. Stress echocardiogram however suggested inducible ischemia in the anterior distribution. Telemetry reviewed: No further episodes of wide complex tachycardia. Assessment and Plan 1. Chest pain: This is resolved.. 2. Ventricular tachycardia: No additional episodes overnight. This is of unclear etiology. The initial thought was that this was an idiopathic phenomenon an otherwise structurally normal heart. However, her stress echocardiogram was suggestive of ischemia. She has not had any symptoms related to the ventricular tachycardia. She has been started on a beta- renata. This point I did discuss with the patient the utility of angiography. We will wait till Friday to perform cardiac catheterization to see if there is truly coronary disease. In the absence of true coronary disease (ie a false- positive stress test) We could still consider this an idiopathic phenomenon and treat conservatively with beta blockade in follow-up.
[2016-11-02] MEDS: METOPROLOL TARTRATE 25 MG TAB PO SCH ×2 (11:50→20:30)
--- NOTE | 2016-11-02 15:23 | Progress Note ---
Subjective Date of Service: Nov 02, 2016. Subjective Pt evaluation today including: conversation w/ patient, physical exam, lab review, review of inpatient medication list Pain: no pain PO Intake: adequate Voiding: no voiding problems patient feels fine, no symptoms from ventricular rhythm will allow to ambulate, stop fluids, plan for cath Friday no questions from patient Problem List Medical Problems: (1) Bipolar Disorder, Unspecified Status: Chronic (2) Epigastric abdominal pain Status: Acute (3) Osteoporosis Nos Status: Chronic (4) Precordial chest pain Status: Acute (5) Wide-complex tachycardia Status: Acute Review of Systems All Other Systems: Reviewed and Negative Medications Current Inpatient Medications Medications (Trade) Dose Ordered Sig/Armando Route Start Time Stop Time Status Last Admin Dose Admin Heparin Sodium (Porcine) (Heparin Sq 5000 Unit/0.5ml) 5,000 unit Q8 SQ 10/31/16 22:00 11/30/16 21:59 11/02/16 14:06 5,000 UNIT Acetaminophen (Tylenol Tab) 650 mg Q4H PRN PO 10/31/16 16:00 11/30/16 15:59 11/01/16 04:26 650 MG Al Hydrox/Mg Hydrox/Simethicone (Maalox Max Susp) 15 ml Q4H PRN PO 10/31/16 16:00 11/30/16 15:59 11/01/16 04:28 15 ML Magnesium Hydroxide (Milk Of Magnesia Susp) 30 ml Q12H PRN PO 10/31/16 16:00 11/30/16 15:59 Zolpidem Tartrate (Ambien Tab) 5 mg HSZ PRN PO 10/31/16 16:00 11/30/16 15:59 Nitroglycerin (Nitrostat Tab) 0.4 mg UD PRN SL 10/31/16 16:00 11/30/16 15:59 11/01/16 04:04 0.4 MG Morphine Sulfate (MoRPHine SULFATE INJ) 2 mg Q30M PRN IV 10/31/16 16:00 11/14/16 15:59 Aspirin (Ecotrin Tab) 325 mg QAM PO 11/01/16 09:00 12/01/16 08:59 11/02/16 08:06 325 MG Polyethylene (Miralax Powder Packet) 17 gm DAILY PRN PO 10/31/16 16:00 11/30/16 15:59 Famotidine (Pepcid Tab) 20 mg QAM PO 11/01/16 09:00 12/01/16 08:59 11/02/16 08:07 20 MG Miscellaneous (Iv Fluids Completed) 1 ea PRN PRN N/A 10/31/16 16:30 10/31/17 16:29 Lamotrigine (Lamictal Tab) 100 mg BID PO 11/01/16 09:00 12/01/16 08:59 11/02/16 08:06 100 MG Levothyroxine Sodium (Synthroid Tab) 50 mcg DAILYBB PO 11/01/16 09:00 12/01/16 08:59 11/02/16 06:45 50 MCG [place] Carbonate (Lithobid Tab) 300 mg QAM PO 11/01/16 09:00 12/01/16 08:59 11/02/16 08:57 300 MG [place] Carbonate (Lithobid Tab) 900 mg HS PO 11/01/16 21:00 12/01/16 20:59 11/01/16 21:28 900 MG Lorazepam (Ativan Tab) 0.5 mg TID PRN PO 11/01/16 09:00 12/01/16 08:59 Venlafaxine HCl (effeXOR EXTENDED REL CAP) 150 mg BID PO 11/01/16 09:00 12/01/16 08:59 11/02/16 08:06 150 MG Metoprolol Tartrate (Lopressor Tab) 12.5 mg BID PO 11/02/16 11:00 12/02/16 10:59 11/02/16 11:50 12.5 MG Objective Vital Signs Date Time Temp Pulse Resp B/P (MAP) Pulse Ox O2 Delivery O2 Flow Rate FiO2 11/02/16 12:00 Room Air 11/02/16 11:47 37.2 74 18 129/60 (83) 93 Room Air 11/02/16 08:06 37.1 68 18 131/77 (95) 96 Room Air 11/02/16 08:00 Room Air 11/02/16 04:00 Room Air 11/02/16 03:23 36.7 62 18 148/87 (107) 96 Room Air 11/01/16 23:59 Room Air 11/01/16 23:20 36.7 72 18 145/79 (101) 96 Room Air 11/01/16 20:00 96 Room Air 11/01/16 20:00 67 139/91 (107) 95 Room Air 11/01/16 16:04 36.4 79 18 157/93 (114) 96 Room Air 11/01/16 16:00 95 Room Air Physical Exam General Appearance: WD/WN, no apparent distress Neck: supple, no adenopathy, no JVD, trachea midline Respiratory/Chest: chest non-tender, lungs clear, normal breath sounds, no respiratory distress, no accessory muscle use Cardiovascular: regular rate, rhythm, no edema, no gallop, no JVD, no murmur Abdomen: normal bowel sounds, non tender, soft, no organomegaly Extremities: normal range of motion, non-tender, normal inspection, no pedal edema, no calf tenderness, pelvis stable 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, no motor/sensory deficits, alert, normal mood/affect, oriented x 3 Skin: normal color, warm/dry, no rash Lymphatic: no adenopathy Laboratory Results Last 24 Hours Test 11/01/16 15:46 Total Creatine Kinase 39 U/L Troponin I < 0.015 ng/ml Assessment and Plan ASSESSMENT: 66 yo female with epigastric pain, vomiting, dyspnea found to have wide complex tachycardia in the ED on monitor and EKG - Epigastric pain: ruled out for ACS with normal troponin x [address] or TW changes on EKG however, there was evidence of cardiac ischemia on exercise stress test with fatigue and wall motion abnormalities Dr. Garcia recommends heart cath on Friday patient stable on tele today, ambulating in hallway - Wide complex ventricular rhythm: occurs intermittently, no symptoms, typical rates are 90-100's appears to be ventricular in origin, inverted P waves, possible re-entry arrhythmia could be due to ischemia, will need heart cath on Friday started on metoprolol 12.5mg BID today, follow HR and BP - Hypothyroidism: TSH normal - Bipolar d/o: [place] level normal, continue [place] and Effexor LHC on Friday
[2016-11-03] VITALS (10 sets, daily range): BP systolic 103–141; BP diastolic 63–85; PULSE 57–86; TEMP 36.4–37; O2SAT 91–98
[2016-11-03] MEDS: LEVOTHYROXINE 50 MCG TAB PO SCH (06:01)
[2016-11-03] MEDS: HEPARIN SOD 5000 UNIT/0.5 ML CARP SQ SCH ×3 (06:02→20:45)
[2016-11-03] MEDS: ASPIRIN 325 MG ECTAB PO SCH (07:45)
[2016-11-03] MEDS: VENLAFAXINE HCL XR 150 MG CAPXR PO SCH ×2 (07:45→20:31)
[2016-11-03] MEDS: METOPROLOL TARTRATE 25 MG TAB PO SCH ×2 (07:46→20:31)
[2016-11-03] MEDS: LITHIUM CARBONATE SR 300 MG TAB (LITHOBID) PO SCH ×2 (07:46→20:31)
[2016-11-03] MEDS: FAMOTIDINE 20 MG TAB PO SCH (07:46)
--- NOTE | 2016-11-03 09:09 | Cardiology Follow-Up ---
Subjective Date of Service: Nov 03, 2016. Pt evaluation today including: conversation w/ patient, physical exam, chart review, lab review, review of studies History of Present Illness Patient claims to be feeling well today. Her GI symptoms appear to have resolved. She is eating normally. No significant epigastric or chest discomfort. She is not aware of any palpitations. She has not had any dizzy episodes. She has not ambulated significantly since her admission but was encouraged to do so in the hallway today. Social History Smoking Status: Former Smoker History of Alcohol Use: Yes ([employer], [place]- once a week) Review of Systems Respiratory: + see HPI Objective Vital Signs Past 12 Hours Date Time Temp Pulse Resp B/P (MAP) Pulse Ox O2 Delivery O2 Flow Rate FiO2 11/03/16 07:48 37.0 86 16 106/70 (82) 96 Room Air 11/03/16 04:14 Room Air 11/03/16 03:55 36.6 60 16 116/63 (80) 95 Room Air 11/03/16 00:26 36.5 57 20 141/74 (96) 96 Room Air 11/03/16 00:10 Room Air Last Recorded Weight-Kilograms: 87.400 Physical Exam She is alert and oriented x3. Mood affect appear normal. She answered all questions appropriately. HEENT: Sclerae are anicteric. Pupils are equal and reactive to light and accommodation. Extraocular movements were intact. Neuro: Cranial nerves intact Cardiac: The rhythm was regular. S1 and S2 were normal. There are no murmurs on examination. Data EKG: EKG obtained this morning revealed accelerated idioventricular rhythm Telemetry reviewed: Patient has had 2 sustained episodes of a ventricular rhythm over the course of the past 24 hours Assessment and Plan 1. Chest pain: This is resolved. 2. Ventricular tachycardia: After more evaluation of the course of the past 2 days the most accurate description of her arrhythmia is an accelerated idioventricular rhythm. She appears to have a competing focus in the ventricle at rates just faster than her sinus rhythm. On occasion there is competition between the 2 pacemakers, fusion and capture beats. She has no symptoms referable to this arrhythmia. Overall the rates have been very slow. Unclear whether a beta-renata would be the best treatment in this case but may suppress an element of automaticity. Her overall ventricular function is normal and this is likely to be a benign process overall. However, she did have an abnormal exercise test on Friday and would seem reasonable to perform a more thorough coronary evaluation in the setting of the arrhythmia and abnormal test prior to discharge. I did describe the test and its associated risks with the patient in her family yesterday. She has signed a witnessed consent form. She does report a very remote reaction to iodinated contrast and we will premedicate her this evening. In the absence of significant coronary disease detected tomorrow she can likely be discharged in the afternoon on current therapy.
[2016-11-03] MEDS ORDERED: DC ALL ANTICOAGULANTS ONE (09:15)
[2016-11-03] MEDS ORDERED: CIMETIDINE 300 MG TAB PO SCH (09:30)
--- NOTE | 2016-11-03 14:17 | Progress Note ---
Subjective Date of Service: Nov 03, 2016. Subjective Pt evaluation today including: conversation w/ patient, physical exam, review of inpatient medication list Pain: no pain PO Intake: adequate Voiding: no voiding problems patient feeling well, no complaints, ambulating around unit, eating well plan for cath tomorrow on monitor, still with intermittent ventricular rhythm, remains asymptomatic Problem List Medical Problems: (1) Bipolar Disorder, Unspecified Status: Chronic (2) Epigastric abdominal pain Status: Acute (3) Osteoporosis Nos Status: Chronic (4) Precordial chest pain Status: Acute (5) Wide-complex tachycardia Status: Acute Review of Systems All Other Systems: Reviewed and Negative Medications Current Inpatient Medications Medications (Trade) Dose Ordered Sig/Armando Route Start Time Stop Time Status Last Admin Dose Admin Heparin Sodium (Porcine) (Heparin Sq 5000 Unit/0.5ml) 5,000 unit Q8 SQ 10/31/16 22:00 11/30/16 21:59 Future Hold 11/03/16 06:02 5,000 UNIT Acetaminophen (Tylenol Tab) 650 mg Q4H PRN PO 10/31/16 16:00 11/30/16 15:59 11/01/16 04:26 650 MG Al Hydrox/Mg Hydrox/Simethicone (Maalox Max Susp) 15 ml Q4H PRN PO 10/31/16 16:00 11/30/16 15:59 11/01/16 04:28 15 ML Magnesium Hydroxide (Milk Of Magnesia Susp) 30 ml Q12H PRN PO 10/31/16 16:00 11/30/16 15:59 Zolpidem Tartrate (Ambien Tab) 5 mg HSZ PRN PO 10/31/16 16:00 11/30/16 15:59 Nitroglycerin (Nitrostat Tab) 0.4 mg UD PRN SL 10/31/16 16:00 11/30/16 15:59 11/01/16 04:04 0.4 MG Morphine Sulfate (MoRPHine SULFATE INJ) 2 mg Q30M PRN IV 10/31/16 16:00 11/14/16 15:59 Aspirin (Ecotrin Tab) 325 mg QAM PO 11/01/16 09:00 12/01/16 08:59 11/03/16 07:45 325 MG Polyethylene (Miralax Powder Packet) 17 gm DAILY PRN PO 10/31/16 16:00 11/30/16 15:59 Famotidine (Pepcid Tab) 20 mg QAM PO 11/01/16 09:00 12/01/16 08:59 11/03/16 07:46 20 MG Miscellaneous (Iv Fluids Completed) 1 ea PRN PRN N/A 10/31/16 16:30 10/31/17 16:29 Lamotrigine (Lamictal Tab) 100 mg BID PO 11/01/16 09:00 12/01/16 08:59 11/03/16 07:45 100 MG Levothyroxine Sodium (Synthroid Tab) 50 mcg DAILYBB PO 11/01/16 09:00 12/01/16 08:59 11/03/16 06:01 50 MCG [place] Carbonate (Lithobid Tab) 300 mg QAM PO 11/01/16 09:00 12/01/16 08:59 11/03/16 07:46 300 MG [place] Carbonate (Lithobid Tab) 900 mg HS PO 11/01/16 21:00 12/01/16 20:59 11/02/16 20:28 900 MG Lorazepam (Ativan Tab) 0.5 mg TID PRN PO 11/01/16 09:00 12/01/16 08:59 Venlafaxine HCl (effeXOR EXTENDED REL CAP) 150 mg BID PO 11/01/16 09:00 12/01/16 08:59 11/03/16 07:45 150 MG Metoprolol Tartrate (Lopressor Tab) 12.5 mg BID PO 11/02/16 11:00 12/02/16 10:59 11/03/16 07:46 12.5 MG Sodium Chloride 1,000 ml @ 90 mls/hr Q11H7M IV 11/04/16 00:00 12/04/16 00:00 Prednisone (PredniSONE TAB) 50 mg 18 ONCE PO 11/03/16 18:00 11/03/16 18:01 Prednisone (PredniSONE TAB) 50 mg Q8H PO 11/04/16 02:00 11/04/16 10:01 Diphenhydramine HCl (Benadryl Cap) 50 mg 0800 PO 11/04/16 08:00 11/04/16 14:00 Cimetidine (Tagamet Tab) 300 mg 0800 PO 11/04/16 08:00 11/04/16 14:00 Objective Vital Signs Date Time Temp Pulse Resp B/P (MAP) Pulse Ox O2 Delivery O2 Flow Rate FiO2 11/03/16 12:19 36.4 64 18 136/84 (101) 91 Room Air 11/03/16 12:00 Room Air 11/03/16 08:00 Room Air 11/03/16 07:48 37.0 86 16 106/70 (82) 96 Room Air 11/03/16 04:14 Room Air 11/03/16 03:55 36.6 60 16 116/63 (80) 95 Room Air 11/03/16 00:26 36.5 57 20 141/74 (96) 96 Room Air 11/03/16 00:10 Room Air 11/02/16 20:32 37.0 64 18 122/67 (85) 96 11/02/16 20:00 96 Room Air 11/02/16 16:00 96 Room Air 11/02/16 15:48 36.9 59 20 107/71 (83) 96 Room Air Physical Exam General Appearance: WD/WN, no apparent distress Eyes: normal inspection, EOMI, sclerae normal Neck: supple, no adenopathy, no JVD, trachea midline Respiratory/Chest: chest non-tender, lungs clear, normal breath sounds, no respiratory distress, no accessory muscle use Cardiovascular: regular rate, rhythm, no edema, no gallop, no JVD, no murmur Abdomen: normal bowel sounds, non tender, soft, no organomegaly Extremities: normal range of motion, non-tender, normal inspection, no pedal edema, no calf tenderness, pelvis stable 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 Garcia recommends heart cath on Friday patient stable on tele today, ambulating in hallway - Wide complex ventricular rhythm: occurs intermittently, no symptoms, typical rates are 90-100's appears to be ventricular in origin, inverted P waves, possible re-entry arrhythmia could be due to ischemia, will need heart cath on Friday remote h/o iodinated allergy, protocol written for by cardiology in anticipation of cath tomorrow started on metoprolol 12.5mg BID 11/02, continue this dose - Hypothyroidism: TSH normal - Bipolar d/o: [place] level normal, continue [place] and Effexor LHC on Friday in normal, can be d/c to home on metoprolol, d/w cardiology tomorrow for full details of discharge plan
[2016-11-04] VITALS (12 sets, daily range): BP systolic 99–140; BP diastolic 53–83; PULSE 61–70; TEMP 36.8–37; O2SAT 92–98
[2016-11-04] MEDS: SODIUM CHLORIDE 0.9% 1000ML 1,000 ML IV SCH ×2 (01:32→11:07)
[2016-11-04] MEDS: LEVOTHYROXINE 50 MCG TAB PO SCH (06:00)
[2016-11-04] MEDS ORDERED: CIMETIDINE 300 MG TAB PO SCH (08:00)
[2016-11-04] MEDS ORDERED: FENTANYL CITRATE INJ 50 MCG/1 ML 2 ML VIAL ONE (09:14)
[2016-11-04] MEDS ORDERED: HEPARIN SOD (PORCINE) 1000 UNIT/ML 10 ML VIAL ONE (09:15)
[2016-11-04] MEDS ORDERED: NiCARDipine HCL INJ 2.5 MG/ML 10 ML AMP ONE (09:15)
[2016-11-04] MEDS ORDERED: MIDAZOLAM HCL 1 MG/ML 2ML VIAL ONE (09:15)
--- NOTE | 2016-11-04 09:46 | Procedure Note ---
Pre-Mod Sedation Assessment General Date of Moderate Sedation: Nov 04, 2016. Vital Signs: Vital Signs Past 12 Hours Date Time Temp Pulse Resp B/P (MAP) Pulse Ox O2 Delivery O2 Flow Rate FiO2 11/04/16 09:38 76 16 127/68 (87) 98 Room Air 11/04/16 08:12 36.9 65 18 130/83 (99) 96 Room Air 11/04/16 04:06 98 Room Air 11/04/16 04:04 36.8 61 18 120/61 (80) 96 Room Air 11/04/16 01:55 98 Room Air 11/03/16 23:33 37.0 62 20 103/69 (80) 96 Room Air Pre-Sedation Airway Assessment Oral Cavity: Dentures Able to Visualize Vocal Cords: No Short Thick Neck: No Hx of Sleep Apnea: No Smoking Status: Former Smoker Mallampati Classification: Class III ASA Classification: Class II Procedure Planning Contraindications-for Mod Sed: None Yes (Contrast allergy. Pre-medicated) Notes The planned sedation has been discussed with the patient and consent obtained. I have identified the patient, determined the appropriateness of sedation and have assessed the patient immediately prior to the procedure. All medicine(s) and interventions are by my order.
[2016-11-04] MEDS ORDERED: LPR25 PO (11:18)
[2016-11-04] MEDS ORDERED: OMEP20TA PO (11:18)
--- NOTE | 2016-11-04 11:29 | Discharge Instructions ---
Discharge Instructions Date of Service Nov 04, 2016. Admission Reason for Admission: Arrhythmia, Abdominal pain Discharge Discharge Diagnosis / Problem: Accelerated idioventricular arrhythmia, Dyspepsia Discharge Goals Goal(s): Improve disease control, Diagnostic testing, Therapeutic intervention Activity Recommendations Activity Limitations: resume your previous activity Exercise/Sports Limitations: gradually increase as tolerated Shower/Bathe: no limitations . Instructions / Follow-Up Instructions / Follow-Up You were admitted to the hospital due to an abnormal heart rhythm. You also had abdominal pain and nausea with vomiting. You did NOT have a heart attack, but had an abnormal stress test. You then went on to have a cardiac catheterization which was normal-you do not have significant coronary artery disease. You were started on a medication called metoprolol to help with your abnormal heart rhythm. Your recurrent abnormal pain sounds like it could be upset stomach (dyspepsia) from acid reflux. You should restart your omeprazole at home and discuss a referral to a GI specialist with your PCP. Please follow up with your PCP within 1-2 weeks. An appointment will be made for you. You should also follow up with Dr. Garcia of Cardiology in 1 month-his office should be calling you to arrange this appointment time. Current Hospital Diet Patient's current hospital diet: AHA Diet (Heart Healthy) Discharge Diet Recommended Diet: AHA Diet (Heart Healthy) Procedures Procedures Performed: Resting ECHO Stress ECHO Cardiac catheterization CT abdomen/pelvis Chest xray Pending Studies Studies pending at discharge: no Laboratory Results Hemoglobin A1c Test 11/01/16 04:08 Range/Units Estimated Average Glucose 114 mg/dl Hemoglobin A1c 5.6 4.5-5.6 % Lipid Panel Test 10/31/16 18:15 Range/Units Triglycerides Level 84 0-150 mg/dl Cholesterol Level 183 0-200 mg/dl HDL Cholesterol 56 mg/dl Cholesterol/HDL Ratio 3.3 LDL Cholesterol, Calculated 110 mg/dl Medical Emergencies . Who to Call and When: Medical Emergencies: If at any time you feel your situation is an emergency, please call 911 immediately. . Non-Emergent Contact Non-Emergency issues call your: Primary Care Provider, Honing Job Setter Call Non-Emergent contact if: your pain is not controlled, your pain is worsening, your pain is unusual for you, your pain is concerning you, you have any medication questions you have any lightheadedness or heart palpitations, worsening abdominal pain, or for any other acute concerns. . . "Provider Documentation" section prepared by Gisel Jefferson. . VTE Core Measure Inpt VTE Proph given/why not?: SCD's
[2016-11-04] MEDS: ASPIRIN 325 MG ECTAB PO SCH (12:05)
[2016-11-04] MEDS: LITHIUM CARBONATE SR 300 MG TAB (LITHOBID) PO SCH (12:06)
[2016-11-04] MEDS: VENLAFAXINE HCL XR 150 MG CAPXR PO SCH (12:06)
[2016-11-04] MEDS: METOPROLOL TARTRATE 25 MG TAB PO SCH (12:06)
[2016-11-04] MEDS: FAMOTIDINE 20 MG TAB PO SCH (12:07)
--- NOTE | 2016-11-04 17:42 | Procedure Note ---
Procedure Note Date of Service Nov 04, 2016. Procedure Note Procedure performed: Coronary angiography, left heart catheterization Staff prop maker:Marbin Garcia Indication: Patient with a history of ventricular arrhythmia and abnormal stress test. Procedure in detail: The patient was informed of the risks benefits and alternatives to the intended procedure. She understood such which proceed. She was taken to the cardiac catheterization suite in a fasting state. Based on her contrast allergy she was premedicated. Conscious sedation was administered per protocol and the patient was monitored electrocardiographically throughout today's procedure. The right wrist area was prepped and draped in usual sterile fashion. This area was anesthetized using subcutaneous menstruation of lidocaine solution. The right radial artery subsequently access using modified Selinger technique and a 5 [place] arterial sheath was placed at the site over guidewire. This sheath was used to facilitate passage of the cardiac catheter for engagement of the coronary arteries. Coronary angiography was performed in multiple orthogonal views prior to removal of the catheter. Hemodynamics including left ventricular pressure was also measured. At the conclusion of the case the catheter and the sheath was removed. Patient tolerated procedure well and there were no immediate complications Equipment used: 5 [place] tiger 4 Findings: Hemodynamics: Opening aortic pressure was 101/57. Left ventricular pressure was 111/7. Left ventricular end-diastolic pressure was 12 Coronary angiography: Left main: Left main coronary artery was normal in size and caliber and bifurcated into the left anterior descending and left circumflex arteries. No disease in this vessel Left anterior descending: Left anterior descending: Was normal in size and caliber. It produced a very large 1st diagonal and a fairly diminutive 2nd diagonal. It was a transapical vessel. He had had evidence of hypertensive arteriopathy. There were no obstructive lesions in this distribution. Left circumflex artery: This was a non dominant vessel. It produced a very large 1st OM system with a fairly diminutive ongoing AV groove vessel There was evidence of hypertensive arteriopathy. There were no obstructive lesions in this distribution. Right coronary artery: This was a dominant vessel supplying the PDA. There was evidence of hypertensive arteriopathy There were no obstructive lesions in this distribution. Impression: 1. Normal coronary arteries without evidence of obstructive coronary disease. 2. Normal intracardiac pressures.
--- NOTE | 2016-11-04 19:38 | Discharge Summary ---
Discharge Summary Date of Service Nov 04, 2016. Discharge Summary Admission Date: Nov 01, 2016 at 16:21 Discharge Date: Nov 04, 2016 Discharge Disposition: Home Principal Diagnosis: Accelerated idioventricular arrhythmia,Dyspepsia Problems/Secondary Diagnoses: (1) Bipolar Disorder, Unspecified Status: Chronic (2) Osteoporosis Nos Status: Chronic Immunizations: Have You Had Influenza Vaccine: Yes History of Tetanus Vaccine?: Unknown History of Pneumococcal: Yes History of Hepatitis B Vaccine: No Procedures: CHEST ONE VIEW PORTABLE CLINICAL HISTORY: 66 years-old Female presenting with cp . TECHNIQUE: Portable upright AP view of the chest was obtained. COMPARISON: 04/30/2010. FINDINGS: Cardiomediastinal silhouette normal. Lungs and pleural spaces clear. Osseous structures and upper abdomen normal. IMPRESSION: 1. No acute cardiopulmonary disease. ABD/PELVIS NO IV OR ORAL CONT CT DOSE: 894.55 mGycm HISTORY: Pain. Nausea. epigastric abd pain TECHNIQUE: Multiaxial CT images of the abdomen and pelvis were performed without contrast. A dose lowering technique was utilized adhering to the principles of ALARA. COMPARISON STUDY: None. FINDINGS: The lung bases are clear. The unenhanced liver, spleen, gallbladder, pancreas, kidneys, and adrenal glands are within normal limits. No bowel wall thickening or obstruction. The pelvic organs are unremarkable. No suspicious lytic or blastic osseous lesions. IMPRESSION: No significant abnormality identified within the abdomen or pelvis. Normal appendix. Nonobstructive bowel pattern. Cardiac catheterization Consultations: Cardiology Medication Reconciliation New Medications: Omeprazole (Omeprazole) 20 Mg Tab 1 TAB PO QAM for 30 Days, #30 TAB 0 Refills Metoprolol Tartrate (Lopressor) 25 Mg Tab 12.5 MG PO BID for 30 Days, #30 TAB Continued Medications: Aspirin (Aspirin) 81 Mg Tab 1 TAB PO DAILY Ergocalciferol (Vitamin D2) 400 Unit Tab 1 TAB PO DAILY Lamotrigine (Lamictal) 100 Mg Tab 100 MG PO BID, TAB Levothyroxine Sodium (Synthroid) 50 Mcg Tab 50 MCG PO DAILY, TAB [place] Carbonate Ext Rel (Lithobid Ext Rel) 300 Mg Tabcr 300 MG PO QAM, TAB [place] Carbonate Ext Rel (Lithobid Ext Rel) 300 Mg Tabcr 900 MG PO HS, TAB Lorazepam (Ativan) 0.5 Mg Tab 0.5 MG PO TID PRN for Anxiety, TAB Venlafaxine Hcl (Effexor Extended Rel) 150 Mg Cap 150 MG PO BID, CAP Vitamin B Cmplx/Vitc/Folic Ac (Nephrocaps) Cap 1 CAP PO DAILY, CAP Discontinued Medications: Naproxen (Aleve) 220 Mg Tab 440 MG PO UD, TAB Referrals At Discharge Follow up Referrals: [facility] Referral - Within a Month with Marbin Garcia MD Family Practice Referral - Within 1-2 Weeks with Radha Thakkar M.D. Discharge Exam Patient had cardiac catheterization today that showed normal coronary arteries. Her upper abdominal pain came back last night and lasted all night long, felt like indigestion, was somewhat relieved with antacids small morning. She reports that she has been having this abdominal pain 4-5 times per week for several months but it had improved previously with taking omeprazole at home. However, she stopped her omeprazole and the symptoms returned just prior to admission. She has never seen a GI specialist. However, she is tolerating a regular diet and I discussed the case with cardiology after the catheterization today. Review of Systems: Constitutional: No fever Eyes: No problem reported ENT: No problem reported Respiratory: No shortness of breath Cardiovascular: No chest pain Abdomen: + pain (some mild epigastric abd pain), No nausea, No vomiting, No GI bleeding Musculoskeletal: No problem reported Genitourinary - Female: No problem reported Neurologic: No problem reported Psychiatric: No problem reported Endocrine: No problem reported Hematologic / Lymphatic: No problem reported Integumentary: No problem reported Physical Exam: General Appearance: WD/WN, no apparent distress Eyes: normal inspection, sclerae normal ENT: hearing grossly normal, pharynx normal Neck: supple, trachea midline Respiratory/Chest: lungs clear, normal breath sounds, no respiratory distress, no accessory muscle use Cardiovascular: regular rate, rhythm, no edema, no gallop, no JVD, no murmur , normal peripheral pulses Abdomen / GI: normal bowel sounds, non tender, soft, no organomegaly, no pulsatile mass Extremities: normal inspection, no calf tenderness, normal capillary refill , no pedal edema Neurologic/Psychiatric: no motor/sensory deficits, alert, normal mood/affect , oriented x 3 Skin: normal color, warm/dry, no rash Lymphatic: no adenopathy Hospital Course 66 yo female with epigastric pain, vomiting, dyspnea found to have wide complex tachycardia in the ED on monitor and EKG - Epigastric pain: ruled out for ACS with normal troponin x [address] or TW changes on EKG however, there was evidence of cardiac ischemia on exercise stress test with fatigue and wall motion abnormalities Dr. Garcia performed heart cath which showed normal coronary arteries -She can be discharged home on omeprazole as this likely represents dyspepsia or GERD-recommend she follow up with the GI specialist for possible EGD after discussing with her PCP - Wide complex ventricular rhythm: occurs intermittently, no symptoms, typical rates are 90-100's-cardiology cause this and accelerated idioventricular rhythm arrhythmia is not due to ischemia given normal cardiac catheterization -Continue metoprolol 12.5mg upon discharge and this may or may not be continued at her cardiology follow-up visit in one month - Hypothyroidism: TSH normal - Bipolar d/o: [place] level normal, continue [place] and Effexor Total Time Spent: Greater than 30 minutes This includes examination of the patient, discharge planning, medication reconciliation, and communication with other providers. Discharge Instructions Please refer to the electronic Patient Visit Report (Discharge Instructions) for additional information. Follow-Up PCP within 1-2 weeks Cardiology within 1 month Additional Copies To Radha Thakkar M.D.
== END 2016-11-04 15:22 | disposition home or self-care (01) | DRG 287 ==
LOC: C.EDB 10:58 → C.2E 16:11 → ENRESERV 16:59 → OBSVTOIN 11-01 16:21
PROVIDERS: ADMIT Internal Medicine; ATTEND Family Medicine
PROC: B2111ZZ Fluoroscopy of Multiple Coronary Arteries using Low Osmolar Contrast (ICD-10-PCS; principal; 2016-11-04 09:00)
PROC: 4A023N7 Measurement of Cardiac Sampling and Pressure, Left Heart, Percutaneous Approach (ICD-10-PCS; principal; 2016-11-04 09:00)
DX: I49.8 Other specified cardiac arrhythmias (principal); I47.2 Ventricular tachycardia; F31.9 Bipolar disorder, unspecified; M81.0 Age-related osteoporosis without current pathological fracture; E11.9 Type 2 diabetes mellitus without complications; I10 Essential (primary) hypertension; Z88.0 Allergy status to penicillin; Z79.82 Long term (current) use of aspirin; E03.9 Hypothyroidism, unspecified; Z87.891 Personal history of nicotine dependence

== ENCOUNTER → 2017-04-15 | Outpatient (CLI) | payer OTHER ==
[~2017-04-15] MED LIST changes: -ABL10 PO; -ASPEC325 PO; +ASPI-461 PO; -ATV5 PO; +B-CO1CAP17 PO; -B-COCAP2 PO; -CHOLTAB3 PO; -CLTP PO; -CONJ0.453 PO; -CYM60 PO; +ERGO1TAB10 PO; -FSM70 PO; +LAMO100T16 PO; +LEVO50TA PO; +LITH1TAB10 PO; +LORA-741 PO; +LPR25 PO; +OMEP20TA PO; -OSTEO BIOFLEX PO; -OXYC-57 PO; +VENL150C56 PO
[2017-04-15 17:27] LABS: BASO % 1.2 %; BASO ABS # 0.09 K/uL (0-0.2); EOS ABS # 0.31 K/uL (0-0.5); HEMATOCRIT 37.8 % (37-47); HEMOGLOBIN 11.9 g/dL (12.0-16.0); IG# 0.02 K/uL (0.00-0.02); LYMPH % 29.7 %; LYMPH ABS # 2.32 K/uL (1.2-3.4); MEAN CELL VOLUME 94.5 fL (80-100); MEAN CORPUSCULAR HEMOGLOBIN 29.8 pg (25-34); MEAN CORPUSCULAR HGB CONC 31.5 g/dl (32-36); MEAN PLATELET VOLUME 10.1 fL (7.4-10.4); MONO % 7.2 %; MONO ABS # 0.56 K/uL (0.11-0.59); NEUT % 57.6 %; NEUT ABS # 4.51 K/uL (1.4-6.5); PLATELET COUNT 343 K/uL (130-400); RED CELL DISTRIBUTION WIDTH SD 45.1 fL (36.4-46.3); WHITE BLOOD COUNT 7.81 K/uL (4.8-10.8)
== END | disposition home or self-care (01) ==
LOC: C.LABBFT 15:20
PROVIDERS: ATTEND Internal Medicine
DX: F72 Severe intellectual disabilities (principal); Z00.00 Encounter for general adult medical examination without abnormal findings; M81.0 Age-related osteoporosis without current pathological fracture; R53.83 Other fatigue; E55.9 Vitamin D deficiency, unspecified

== ENCOUNTER 2017-05-11 13:31 | Inpatient (IN) | payer OTHER ==
[~2017-05-11] VITALS: Ht 165.1 cm; Wt 91.4 kg
[2017-05-11] MEDS ORDERED: SODIUM CHLORIDE 0.9% 1000ML 1,000 ML IV STA (14:49)
--- NOTE | 2017-05-11 15:00 | EMERGENCY ROOM VISIT NOTE ---
History Report prepared by Malgorzata: Joie Bradley Under the Supervision of: Dr. Fredrick Wood M.D. First contact with patient: 14:37 Chief Complaint: BITE Stated Complaint: SWOLLEN HAND FROM DOG BITE History of Present Illness The patient is a 66 year old female who presents to the Emergency Room with complaints of episodic dog bite to left hand May 09, 2017. She tried to move her dog's food dish when the animal bit her left hand. Her dog is a Bernese Mountain/Brandon mix. She went to urgent care yesterday and was prescribed Doxycycline and Flagyl. She was also given a tetanus shot. She notes the swelling is worse than yesterday. She has a history of bipolar disorder and currently takes [place]. She denies any recent episodes of roman or depression. Her vaccinations are up-to-date. She also notes her dog is vaccinated. She denies any fever or flu-like symptoms. Source of History: patient Onset: May 09, 2017 Position: hand (left) Quality: other (dog bite) Timing: other (episodic) Associated Symptoms: No fevers Note: She notes left hand swelling. She denies any flu-like symptoms. She denies any recent episodes of roman or depression. Review of Systems See HPI for pertinent positives & negatives. A total of 10 systems reviewed and were otherwise negative. Past Medical & Surgical Medical Problems: (1) AIVR (accelerated idioventricular rhythm) (2) Arrhythmia (3) Bipolar Disorder, Unspecified (4) Cardiac ischemia (5) Cellulitis of hand (6) Osteoporosis Nos Old medical records were reviewed. Nurse's notes were reviewed and I agree with. Family History Cancer Depression Diabetes mellitus Gallbladder disease Heart disease Hypertension Lung disease Seizures Social History Smoking Status: Former Smoker Smokeless Tobacco Use: No Alcohol Use: occasionally Drug Use: none Marital Status: Housing Status: lives with family Occupation Status: unemployed Current/Historical Medications Scheduled Aspirin (Aspirin), 1 TAB PO DAILY Cholecalciferol (Vitamin D3), 3,000 UNITS PO QAM Duloxetine HCl (Cymbalta), 30 MG PO QAM Lamotrigine (Lamictal), 100 MG PO BID Levothyroxine Sodium (Synthroid), 50 MCG PO DAILY [place] Carbonate Ext Rel (Lithobid Ext Rel), 300 MG PO QAM [place] Carbonate Ext Rel (Lithobid Ext Rel), 600 MG PO HS Metoprolol Tartrate (Lopressor) (Lopressor), 12.5 MG PO BID Vitamin B Cmplx/Vitc/Folic Ac (Nephrocaps), 1 CAP PO DAILY Scheduled PRN Lorazepam (Ativan), 0.5 MG PO TID PRN for Anxiety Omeprazole (Prilosec), 20 MG PO DAILY PRN for Indigestion Allergies Coded Allergies: Iodinated Diagnostic Agents (Verified Allergy, Unknown, IV IODINE, 05/11/17) Penicillins (Verified Allergy, Unknown, `, 05/11/17) Phenobarbital (Verified Allergy, Unknown, `, 05/11/17) Physical Exam Vital Signs Date Time Temp Pulse Resp B/P (MAP) Pulse Ox O2 Delivery O2 Flow Rate FiO2 05/11/17 16:26 36.7 65 18 130/70 96 Room Air 05/11/17 13:35 36.8 71 18 143/85 97 Room Air Physical Exam General: Non-ill appearing middle-aged female in no acute distress. HEENT: Normal cephalic atraumatic. Pupils are equal round and reactive to light. Extraocular movements are intact. Oropharynx is pink with moist mucous membranes. No swelling of the mouth lips or tongue. Neck: Supple with a midline trachea. No meningeal signs or stiffness, no JVD or bruits. No Stridor. Chest: Clear to auscultation bilaterally. No wheezes or rhonchi. No increased work of breathing. Heart: regular rate and rhythm. Abdomen: Soft nontender, nondistended without rebound guarding or rigidity. Extremities: No cyanosis.. No calf tenderness or assymetry. Left hand is markedly swollen with lacerations to the dorsal aspect near the base of the index and fifth finger. Small amount of purulence at fifth finger laceration. Normal motor and sensation. Spine/Back. Non tender to palpation. No CVA tenderness Skin: Good turgor without rashes. Neurologic exam: Cranial nerves two through 12 are intact. Motor and sensation are intact and symmetrical throughout. Medical Decision & Procedures ER Provider Diagnostic Interpretation: Radiology results as stated below per my review and radiologist interpretation: L HAND MIN 3 VIEWS ROUTINE CLINICAL HISTORY: 66 years-old Female presenting with dog bite. TECHNIQUE: Frontal, oblique, and lateral views of the left hand were obtained. COMPARISON: None. FINDINGS: No acute fracture or malalignment. Fracture of the ulnar styloid noted. Osteopenia may be present. No advanced degenerative change. No skin soft tissue swelling along the dorsum of the hand. Subjacent osseous erosion. IMPRESSION: Significant soft tissue swelling of the hand could indicate cellulitis. No radiographic evidence of osteomyelitis at this time. Electronically signed by: Danyel Watters M.D. 05/11/2017 3:06 PM Dictated Date/Time: 05/11/2017 3:04 PM Laboratory Results 05/11/17 15:15 Red Blood Count 3.87, Mean Corpuscular Volume 94.1, Mean Corpuscular Hemoglobin 29.7, Mean Corpuscular Hemoglobin Concent 31.6, Mean Platelet Volume 10.0, Neutrophils (%) (Auto) 68.5, Lymphocytes (%) (Auto) 20.2, Monocytes (%) (Auto) 7.1, Eosinophils (%) (Auto) 3.4, Basophils (%) (Auto) 0.5, Neutrophils # (Auto) 6.73, Lymphocytes # (Auto) 1.98, Monocytes # (Auto) 0.70, Eosinophils # (Auto) 0.33, Basophils # (Auto) 0.05 05/11/17 15:15 Test 05/11/17 15:15 White Blood Count 9.82 K/uL (4.8-10.8) Red Blood Count 3.87 M/uL (4.2-5.4) Hemoglobin 11.5 g/dL (12.0-16.0) Hematocrit 36.4 % (37-47) Mean Corpuscular Volume 94.1 fL (80-100) Mean Corpuscular Hemoglobin 29.7 pg (25-34) Mean Corpuscular Hemoglobin Concent 31.6 g/dl (32-36) Platelet Count 309 K/uL (130-400) Mean Platelet Volume 10.0 fL (7.4-10.4) Neutrophils (%) (Auto) 68.5 % Lymphocytes (%) (Auto) 20.2 % Monocytes (%) (Auto) 7.1 % Eosinophils (%) (Auto) 3.4 % Basophils (%) (Auto) 0.5 % Neutrophils # (Auto) 6.73 K/uL (1.4-6.5) Lymphocytes # (Auto) 1.98 K/uL (1.2-3.4) Monocytes # (Auto) 0.70 K/uL (0.11-0.59) Eosinophils # (Auto) 0.33 K/uL (0-0.5) Basophils # (Auto) 0.05 K/uL (0-0.2) RDW Standard Deviation 44.3 fL (36.4-46.3) RDW Coefficient of Variation 12.9 % (11.5-14.5) Immature Granulocyte % (Auto) 0.3 % Immature Granulocyte # (Auto) 0.03 K/uL (0.00-0.02) Anion Gap 7.0 mmol/L (3-11) Est Creatinine Clear Calc Drug Dose 58.9 ml/min Estimated GFR () 64.1 Estimated GFR (Non- 55.3 BUN/Creatinine Ratio 21.1 (10-20) Calcium Level 9.3 mg/dl (8.5-10.1) [place] Level 1.0 mMOL/L (0.6-1.2) Laboratory studies as stated above per my review. Medications Administered Medications (Trade) Dose Ordered Sig/Armando Route Start Time Stop Time Status Last Admin Dose Admin Sodium Chloride 1,000 ml @ 999 mls/hr Q1H1M STAT IV 05/11/17 14:49 2 15:49 DC 05/11/17 15:22 999 MLS/HR Ciprofloxacin/ Dextrose (Cipro / D5W) 400 mg NOW STAT IV 05/11/17 15:22 05/11/17 15:24 DC 05/11/17 15:57 400 MG Metronidazole (Flagyl / Nss) 500 mg NOW STAT IV 05/11/17 15:22 05/11/17 15:24 DC 05/11/17 16:24 500 MG ECG Indication: other (dog bite) Rate (beats per minute): 64 Rhythm: normal sinus Findings: no acute ischemic change, no ectopy, other (Normal intervals. QTC not significantly prolonged.) Comparison ECG Date: no prior available Change: Patient's electrocardiogram was interpreted by me. ED Course 1442: Past medical records reviewed. The patient was evaluated in room A4B, and a complete history and physical examination were performed. 1449: Ordered Sodium Chloride 1,000 ml @ 999 mls/hr IV 1457: I spoke with the pharmacist. They will provide consult on proper medications. 1505: The pharmacist reviewed the patient's chart and recommends IV Cipro and IV Flagyl. 1522: Ordered Flagyl 500 mg IV and Cipro 400 mg IV 1635: I spoke with Dr. Carlson, hospitalist. We discussed the patient's case. The patient will be evaluated by the [facility] for further management. 1640: I reassessed the patient at this time. I discussed the results and treatment plan with the patient. I answered all pertaining questions that she had. She expressed understanding and verbalized agreement. The patient will be further evaluated. Medical Decision Differentials include, but are not limited to cellulitis, wound infection, and tendonitis This patient comes in as described above. He was placed in room A4. She comes in after having a dog bite 2 days ago. She has a severe penicillin allergy and is anaphylaxis and in light of this the put her on doxycycline and flagyl. She said today when she woke up, it is significantly swollen compared to yesterday mildly red. She feels okay otherwise. On exam, she has several lacerations which were not closed by are being held together with Steri-Strips. The one laterally may have a small amount of purulence. She's had no evidence suggest compartment syndrome. X-ray of the hand was obtained. IV access was established. I consulted our pharmacy for antibiotic suggestions. They suggest Cipro IV and Flagyl IV. She was given her allergies and the situation. These were ordered. I also ordered an EKG to monitor her QTC intervals. Her QT interval is not significantly elevated. She has no electrolyte or metabolic abnormalities. [place] level is nontoxic. At this point, I do not feel that she septic but the hand does appear to be infected and worsening and I do think she needs to be observed/admitted for IV antibiotics and consulted Dr. Carlson for these measures. Medication Reconcilliation Current Medication List: was personally reviewed by me Blood Pressure Screening Patient's blood pressure: Elevated blood pressure Blood pressure disposition: Elevated BP felt to be situational Consults Time Called: 1634 Consulting Physician: Dr. Carlson, hospitalist I spoke with Dr. Carlson, hospitalist. We discussed the patient's case. The patient will be evaluated by the [facility] for further management. Impression Primary Impression: Cellulitis Additional Impression: Dog bite Scribe Attestation The scribe's documentation has been prepared under my direction and personally reviewed by me in its entirety. I confirm that the note above accurately reflects all work, treatment, procedures, and medical decision making performed by me. Departure Information Dispostion Being Evaluated By Hospitalist Referrals Radha Thakkar M.D. (PCP) Patient Instructions My [facility] Problem Qualifiers
[2017-05-11] MEDS ORDERED: CHOL1TAB12 PO (15:04)
[2017-05-11] MEDS ORDERED: PRLSR20 PO (15:04)
[2017-05-11] MEDS ORDERED: METO25TA56 PO (15:04)
[2017-05-11] MEDS ORDERED: CYM/30 PO (15:04)
--- NOTE | 2017-05-11 15:07 | DIAGNOSTIC IMAGING REPORT ---
L HAND MIN 3 VIEWS ROUTINE CLINICAL HISTORY: 66 years-old Female presenting with dog bite. TECHNIQUE: Frontal, oblique, and lateral views of the left hand were obtained. COMPARISON: None. FINDINGS: No acute fracture or malalignment. Fracture of the ulnar styloid noted. Osteopenia may be present. No advanced degenerative change. No skin soft tissue swelling along the dorsum of the hand. Subjacent osseous erosion. IMPRESSION: Significant soft tissue swelling of the hand could indicate cellulitis. No radiographic evidence of osteomyelitis at this time. Electronically signed by: Danyel Watters M.D. 05/11/2017 3:06 PM Dictated Date/Time: 05/11/2017 3:04 PM
[2017-05-11] MEDS ORDERED: CIPROFLOXACIN 400MG / 200ML D5W IV STA (15:22)
[2017-05-11] MEDS ORDERED: METRONIDAZOLE 500MG / 100ML NSS IV STA (15:22)
[2017-05-11 15:33] LABS: BASO % 0.5 %; BASO ABS # 0.05 K/uL (0-0.2); EOS % 3.4 %; EOS ABS # 0.33 K/uL (0-0.5); HEMATOCRIT 36.4 % (37-47); HEMOGLOBIN 11.5 g/dL (12.0-16.0); IG# 0.03 K/uL (0.00-0.02); LYMPH % 20.2 %; LYMPH ABS # 1.98 K/uL (1.2-3.4); MEAN CELL VOLUME 94.1 fL (80-100); MEAN CORPUSCULAR HEMOGLOBIN 29.7 pg (25-34); MEAN CORPUSCULAR HGB CONC 31.6 g/dl (32-36); MONO % 7.1 %; NEUT % 68.5 %; NEUT ABS # 6.73 K/uL (1.4-6.5); PLATELET COUNT 309 K/uL (130-400); RED CELL DISTRIBUTION WIDTH CV 12.9 % (11.5-14.5); RED CELL DISTRIBUTION WIDTH SD 44.3 fL (36.4-46.3); WHITE BLOOD COUNT 9.82 K/uL (4.8-10.8)
[2017-05-11 15:49] LABS: CALCIUM 9.3 mg/dl (8.5-10.1); CREATININE 1.05 mg/dl (0.60-1.20)
[2017-05-11] MEDS ORDERED: MAGNESIUM HYDROXIDE SUSP 30 ML UDC PO PRN (17:15)
[2017-05-11] MEDS ORDERED: LORAZEPAM 0.5 MG TAB PO PRN (17:15)
[2017-05-11] MEDS ORDERED: ALUMINUM/MAGNESIUM/SIMETH (MAALOX MAX) 30 ML UDC PO PRN (17:15)
[2017-05-11] MEDS ORDERED: ONDANSETRON INJ 2 MG/ML 2 ML VIAL IV PRN (17:15)
[2017-05-11] MEDS ORDERED: ACETAMINOPHEN 325 MG TAB PO PRN (17:15)
--- NOTE | 2017-05-11 17:19 | History and Physical ---
History & Physical Date & Time of Service: May 11, 2017 at 17:14 Chief Complaint: Swollen Hand From Dog Bite Primary Care Physician: Radha Thakkar M.D. History of Present Illness This patient sustained a left hand dog bite on May 09 from one of her own family pets. She states that the animals immunizations are up-to-date. The patient sought care at a urgent Center and was prescribed doxycycline and Flagyl. The patient's hand swelling progressed and she reported to the ER. In the ER and x-ray does not show any concern for deeper injury or gas within the soft tissues. The patient is audible white count or fever and subsequently she' ll be observed for administration of intravenous antibiotics. This is slightly more complex that she does have a penicillin allergy after consulting with pharmacy ciprofloxacin and metronidazole will be administered. Patient has no other complaints or problems she has no numbness or tingling to her distal left hand she however is unable to approximate her fingers there are 2 puncture wounds seen on the left dorsal hand near the thumb and fifth finger Past Medical/Surgical History Medical Problems: (1) Bipolar Disorder, Unspecified Status: Chronic (2) Osteoporosis Nos Status: Chronic Family History Cancer Depression Diabetes mellitus Gallbladder disease Heart disease Hypertension Lung disease Seizures Social History Smoking Status: Former Smoker Smokeless Tobacco Use: No Drug Use: none Marital Status: Occupational Status: unemployed Immunizations History of Influenza Vaccine: Yes History of Tetanus Vaccine?: Unknown History of Pneumococcal: Yes History of Hepatitis B Vaccine: No Multi-Drug Resistant Organisms History of MDRO: No Allergies Coded Allergies: Iodinated Diagnostic Agents (Verified Allergy, Unknown, IV IODINE, 05/11/17) Penicillins (Verified Allergy, Unknown, `, 05/11/17) Phenobarbital (Verified Allergy, Unknown, `, 05/11/17) Home Medications Scheduled Aspirin (Aspirin), 1 TAB PO DAILY Cholecalciferol (Vitamin D3), 3,000 UNITS PO QAM Duloxetine HCl (Cymbalta), 30 MG PO QAM Lamotrigine (Lamictal), 100 MG PO BID Levothyroxine Sodium (Synthroid), 50 MCG PO DAILY [place] Carbonate Ext Rel (Lithobid Ext Rel), 300 MG PO QAM [place] Carbonate Ext Rel (Lithobid Ext Rel), 600 MG PO HS Metoprolol Tartrate (Lopressor) (Lopressor), 12.5 MG PO BID Vitamin B Cmplx/Vitc/Folic Ac (Nephrocaps), 1 CAP PO DAILY Scheduled PRN Lorazepam (Ativan), 0.5 MG PO TID PRN for Anxiety Omeprazole (Prilosec), 20 MG PO DAILY PRN for Indigestion Review of Systems ROS: well nourished well developed No double vision blurry vision No problems with speech or swallowing No palpitations, chest pain or pressure No Wheezing or breathing issues No abdominal pain nausea vomiting diarrhea changes in appetite or weight No burning urine urine frequency or changes in color Patient has diffuse hand pain and swelling she over has intact sensation as mentioned No skin rashes or oral lesions Patient has some soft tissue bruising near the puncture wounds on her left hand No focused back pain or numbness or loss of strength No changes in memory or confusion Physical Exam Vital Signs Date Time Temp Pulse Resp B/P (MAP) Pulse Ox O2 Delivery O2 Flow Rate FiO2 05/11/17 16:26 36.7 65 18 130/70 96 Room Air 05/11/17 13:35 36.8 71 18 143/85 97 Room Air General Appearance: WD/WN, + mild distress Head: normocephalic, atraumatic Eyes: normal inspection, sclerae normal Neck: supple, no JVD Respiratory/Chest: chest non-tender, lungs clear, normal breath sounds Cardiovascular: regular rate, rhythm, no murmur Abdomen/GI: normal bowel sounds, non tender, soft Back: no CVA tenderness, no muscle spasm Extremities/Musculoskelatal: normal capillary refill, + pertinent finding ( there is significant soft tissue swelling to the dorsal aspect of her hand with some ecchymosis in areas of puncture wounds consistent with a bite cindy across her hand from the medial to lateral aspect these have Steri-Strips applied) Neurologic/Psych: alert, oriented x 3 Diagnostics Laboratory Results Results Past 24 Hours Test 05/11/17 15:15 Range/Units White Blood Count 9.82 4.8-10.8 K/uL Red Blood Count 3.87 4.2-5.4 M/uL Hemoglobin 11.5 12.0-16.0 g/dL Hematocrit 36.4 37-47 % Mean Corpuscular Volume 94.1 80-100 fL Mean Corpuscular Hemoglobin 29.7 25-34 pg Mean Corpuscular Hemoglobin Concent 31.6 32-36 g/dl Platelet Count 309 130-400 K/uL Mean Platelet Volume 10.0 7.4-10.4 fL Neutrophils (%) (Auto) 68.5 % Lymphocytes (%) (Auto) 20.2 % Monocytes (%) (Auto) 7.1 % Eosinophils (%) (Auto) 3.4 % Basophils (%) (Auto) 0.5 % Neutrophils # (Auto) 6.73 1.4-6.5 K/uL Lymphocytes # (Auto) 1.98 1.2-3.4 K/uL Monocytes # (Auto) 0.70 0.11-0.59 K/uL Eosinophils # (Auto) 0.33 0-0.5 K/uL Basophils # (Auto) 0.05 0-0.2 K/uL RDW Standard Deviation 44.3 36.4-46.3 fL RDW Coefficient of Variation 12.9 11.5-14.5 % Immature Granulocyte % (Auto) 0.3 % Immature Granulocyte # (Auto) 0.03 0.00-0.02 K/uL Sodium Level 137 136-145 mmol/L Potassium Level 4.0 3.5-5.1 mmol/L Chloride Level 103 98-107 mmol/L Carbon Dioxide Level 27 21-32 mmol/L Anion Gap 7.0 3-11 mmol/L Blood Urea Nitrogen 22 7-18 mg/dl Creatinine 1.05 0.60-1.20 mg/dl Est Creatinine Clear Calc Drug Dose 58.9 ml/min Estimated GFR () 64.1 Estimated GFR (Non- 55.3 BUN/Creatinine Ratio 21.1 10-20 Random Glucose 99 70-99 mg/dl Calcium Level 9.3 8.5-10.1 mg/dl [place] Level 1.0 0.6-1.2 mMOL/L Microbiology Results 05/11/17 Blood Culture, Received Pending 05/11/17 Blood Culture, Received Pending Diagnostic Radiology Hand x-ray shows no evidence of osteomy let us or soft tissue gas but marked soft tissue swelling no fracture Impression Assessment and Plan 66-year-old female with dog bite cellulitis to her hand feeling outpatient treatment For dog bite cellulitis blood cultures are pending ciprofloxacin and metronidazole will be administered For the patient's significant bipolar disorder this appears to be stable at this present time will continue Cymbalta, Lamictal and lithium. Her lithium level was checked and is 1.0 Hypothyroidism again assess his clinically stable Synthroid we continued 50 g Hypertension the patient maintain on metoprolol 12.5 twice a day DVT prevention is early ambulation VTE Prophylaxis VTE Risk Assessment Done? Y/N: Yes Risk Level: Moderate
[2017-05-11 18:09] VITALS: BP 139/84; PULSE 72; TEMP 36.6; O2SAT 97; Ht 165.1 cm; Wt 91.4 kg
[2017-05-11] MEDS ORDERED: IV FLUIDS COMPLETED PRN (20:00)
[2017-05-11] MEDS ORDERED: INFLUENZA ADMINISTRATION CHARGE ONE (20:00)
[2017-05-11] MEDS ORDERED: INFLUENZA VIRUS QUAD VACCINE 0.5 ML SYR IM. ONE (20:00)
[2017-05-11] MEDS: METOPROLOL TARTRATE 25 MG TAB PO SCH (20:35)
[2017-05-11] MEDS ORDERED: LITHIUM CARBONATE SR 300 MG TAB (LITHOBID) PO SCH (21:00)
[2017-05-11 22:43] VITALS: BP 137/80; PULSE 68; TEMP 36.8; O2SAT 95
[2017-05-11] MEDS: METRONIDAZOLE / NSS 500 MG in PREMIXED NSS 100 ML IV SCH (23:45)
[2017-05-12] MEDS ORDERED: CIPROFLOXACIN / D5W 400 MG in PREMIXED IN D5W 200 ML IV SCH (06:00)
[2017-05-12] MEDS ORDERED: LEVOTHYROXINE 50 MCG TAB PO SCH (06:30)
[2017-05-12 06:45] LABS: HEMATOCRIT 36.7 % (37-47); HEMOGLOBIN 11.5 g/dL (12.0-16.0); MEAN CELL VOLUME 93.9 fL (80-100); MEAN CORPUSCULAR HEMOGLOBIN 29.4 pg (25-34); MEAN CORPUSCULAR HGB CONC 31.3 g/dl (32-36); PLATELET COUNT 288 K/uL (130-400); RED CELL DISTRIBUTION WIDTH CV 12.7 % (11.5-14.5); RED CELL DISTRIBUTION WIDTH SD 43.7 fL (36.4-46.3); WHITE BLOOD COUNT 7.96 K/uL (4.8-10.8)
[2017-05-12 06:56] VITALS: BP 124/73; PULSE 60; TEMP 36.4; O2SAT 95
[2017-05-12 07:22] LABS: CALCIUM 9.4 mg/dl (8.5-10.1); CREATININE 0.94 mg/dl (0.60-1.20); POTASSIUM 4.2 mmol/L (3.5-5.1)
[2017-05-12] MEDS: METOPROLOL TARTRATE 25 MG TAB PO SCH (07:59)
[2017-05-12] MEDS: METRONIDAZOLE / NSS 500 MG in PREMIXED NSS 100 ML IV SCH (08:53)
[2017-05-12] MEDS ORDERED: DULOXETINE (CYMBALTA) 30 MG CAP PO SCH (09:00)
[2017-05-12] MEDS ORDERED: ASPIRIN 81 MG ECTAB PO SCH (09:00)
[2017-05-12] MEDS ORDERED: LITHIUM CARBONATE SR 300 MG TAB (LITHOBID) PO SCH (09:00)
--- NOTE | 2017-05-12 09:08 | Hospitalist Progress Note ---
Hospitalist Progress Note Date of Service May 12, 2017. Objective Vital Signs Date Time Temp Pulse Resp B/P (MAP) Pulse Ox O2 Delivery O2 Flow Rate FiO2 05/12/17 06:56 36.4 60 18 124/73 (90) 95 Room Air 05/12/17 00:00 Room Air 05/11/17 22:43 36.8 68 18 137/80 (99) 95 Room Air 05/11/17 18:09 36.6 72 18 139/84 97 Room Air 05/11/17 17:41 68 20 154/75 99 05/11/17 16:26 36.7 65 18 130/70 96 Room Air 05/11/17 13:35 36.8 71 18 143/85 97 Room Air Laboratory Results Last 24 Hours Test 05/11/17 15:15 05/12/17 06:15 White Blood Count 9.82 K/uL 7.96 K/uL Red Blood Count 3.87 M/uL 3.91 M/uL Hemoglobin 11.5 g/dL 11.5 g/dL Hematocrit 36.4 % 36.7 % Mean Corpuscular Volume 94.1 fL 93.9 fL Mean Corpuscular Hemoglobin 29.7 pg 29.4 pg Mean Corpuscular Hemoglobin Concent 31.6 g/dl 31.3 g/dl Platelet Count 309 K/uL 288 K/uL Mean Platelet Volume 10.0 fL 10.0 fL Neutrophils (%) (Auto) 68.5 % Lymphocytes (%) (Auto) 20.2 % Monocytes (%) (Auto) 7.1 % Eosinophils (%) (Auto) 3.4 % Basophils (%) (Auto) 0.5 % Neutrophils # (Auto) 6.73 K/uL Lymphocytes # (Auto) 1.98 K/uL Monocytes # (Auto) 0.70 K/uL Eosinophils # (Auto) 0.33 K/uL Basophils # (Auto) 0.05 K/uL RDW Standard Deviation 44.3 fL 43.7 fL RDW Coefficient of Variation 12.9 % 12.7 % Immature Granulocyte % (Auto) 0.3 % Immature Granulocyte # (Auto) 0.03 K/uL Sodium Level 137 mmol/L 137 mmol/L Potassium Level 4.0 mmol/L 4.2 mmol/L Chloride Level 103 mmol/L 107 mmol/L Carbon Dioxide Level 27 mmol/L 25 mmol/L Anion Gap 7.0 mmol/L 5.0 mmol/L Blood Urea Nitrogen 22 mg/dl 20 mg/dl Creatinine 1.05 mg/dl 0.94 mg/dl Est Creatinine Clear Calc Drug Dose 58.9 ml/min 65.8 ml/min Estimated GFR () 64.1 73.3 Estimated GFR (Non- 55.3 63.2 BUN/Creatinine Ratio 21.1 20.9 Random Glucose 99 mg/dl 97 mg/dl Calcium Level 9.3 mg/dl 9.4 mg/dl Cane Beds Level 1.0 mMOL/L Assessment and Plan 66 yo female with dog bite cellulitis to her hand failing outpatient treatment Dog bite cellulitis - blood cultures are pending, WBC improved to 7K, afebrile overnight - Cont IV ciprofloxacin and metronidazole ( started 05/11) Significant bipolar disorder - Stable - Cont Cymbalta, Lamictal and lithium. - Her lithium level was checked and is 1.0 Hypothyroidism - stable - Cont Synthroid at 50 g daily Hypertension - Cont metoprolol 12.5 mg BID DVT prevention is early ambulation CODE STATUS: FULL CODE Disposition: From home, discharge when medically stable
[2017-05-12] MEDS ORDERED: METR-162 PO (12:56)
[2017-05-12] MEDS ORDERED: CPR500 PO (12:56)
--- NOTE | 2017-05-12 13:10 | Discharge Instructions ---
Discharge Instructions Date of Service May 12, 2017. Admission Reason for Admission: Cellulitis Of The Hand Discharge Discharge Diagnosis / Problem: Cellulitis of the Left hand Discharge Goals Goal(s): Decrease discomfort, Improve function, Increase independence, Improve disease control Activity Recommendations Activity Limitations: resume your previous activity Lifting Limitations: none Exercise/Sports Limitations: none May Resume Sexual Activity: when tolerated Shower/Bathe: no limitations Driving or Machine Use: no limitations . Instructions / Follow-Up Instructions / Follow-Up You were admitted to [facility] with cellulitis of the L hand from dog bite. During your stay here you were treated with intravenous antibiotics, pain management and supportive care. Imaging studies which were completed include Xray of the hand, and showed cellulitis, there was no infection into the bone. Medications: Continue taking cipro 500 mg twice daily and flagyl 500 mg three times for 12 more days to complete a 2 week course. Continue taking your other medications as prescribed. Appointment: Follow up with your Primary Care Provider within 1 week. Current Hospital Diet Patient's current hospital diet: Regular Diet Discharge Diet Recommended Diet: Regular Diet Pending Studies Studies pending at discharge: no Medical Emergencies . Who to Call and When: Medical Emergencies: If at any time you feel your situation is an emergency, please call 911 immediately. . Non-Emergent Contact Non-Emergency issues call your: Primary Care Provider Call Non-Emergent contact if: you have a fever, temperature is above 100.5, your pain is not controlled, your pain is worsening, your pain is unusual for you, your pain is concerning you, wound has increased drainage, wound has increased redness, wound has increased pain, you have any medication questions other concerns with your health. Call 911 or go directly to the Emergency Department if you experience any of the following: Chest pain, chest tightness, shortness of breath, abdominal pain , lightheadedness, dizziness, gastrointestinal bleeding, or have any other concerns regarding your health. . Past History Medical & Surgical History: (1) Dog bite . "Provider Documentation" section prepared by Krystina Eason. . VTE Core Measure Inpt VTE Proph given/why not?: Chasity Stockings, SCD's
[2017-05-12 13:24] VITALS: BP 124/73; PULSE 60; TEMP 36.4; O2SAT 95
--- NOTE | 2017-05-12 13:28 | Discharge Summary ---
Discharge Summary Date of Service May 12, 2017. Discharge Summary Admission Date: May 11, 2017 at 17:26 Discharge Date: May 12, 2017 Discharge Disposition: Home Principal Diagnosis: Cellulitis of Left hand Problems/Secondary Diagnoses: Medical Problems: (1) AIVR (accelerated idioventricular rhythm) (2) Arrhythmia (3) Bipolar Disorder, Unspecified (4) Cardiac ischemia (5) Cellulitis of hand (6) Osteoporosis Nos Immunizations: Have You Had Influenza Vaccine: Yes History of Tetanus Vaccine?: Unknown History of Pneumococcal: Yes History of Hepatitis B Vaccine: No Procedures: L HAND MIN 3 VIEWS ROUTINE 05/11/17 IMPRESSION: Significant soft tissue swelling of the hand could indicate cellulitis. No radiographic evidence of osteomyelitis at this time. Consultations: none Medication Reconciliation New Medications: Ciprofloxacin (Ciprofloxacin HCl) 500 Mg Tab 500 MG PO BID for 12 Days, #24 TAB Metronidazole (Flagyl) 500 Mg Tab 1 TAB PO TID for 12 Days, #36 TAB Continued Medications: Aspirin (Aspirin) 81 Mg Tab 1 TAB PO DAILY Cholecalciferol (Vitamin D3) 3,000 Unit Tab 3000 UNITS PO QAM Duloxetine HCl (Cymbalta) 30 Mg Cap 30 MG PO QAM for 30 Days, #30 CAP 2 Refills Lamotrigine (Lamictal) 100 Mg Tab 100 MG PO BID, TAB Levothyroxine Sodium (Synthroid) 50 Mcg Tab 50 MCG PO DAILY, TAB [place] Carbonate Ext Rel (Lithobid Ext Rel) 300 Mg Tabcr 300 MG PO QAM, TAB [place] Carbonate Ext Rel (Lithobid Ext Rel) 300 Mg Tabcr 600 MG PO HS, TAB Lorazepam (Ativan) 0.5 Mg Tab 0.5 MG PO TID PRN for Anxiety, TAB Metoprolol Tartrate (Lopressor) (Lopressor) 25 Mg Tab 12.5 MG PO BID, TAB Omeprazole (Prilosec) 20 Mg Capcr 20 MG PO DAILY PRN for Indigestion, CAP Vitamin B Cmplx/Vitc/Folic Ac (Nephrocaps) Cap 1 CAP PO DAILY, CAP Discharge Exam The patient was seen and examined this morning. Pt reports doing well. Swelling and redness of the left hand has decreased significantly since being here. No numbness or tingling. She has full sensation in her fingers. She reports having minimal pain with moving her wrist. She denies any fever sweats or chills. Denies any other acute complaints. Pt notes the dog which bit her was her sisters dog which she has been caring for for the past 4 months. She reports dog is food aggressive. She has been attempting to place the dog in a new home recently. ROS: Constitutional: No fever, sweats or chills Eyes: No diplopia, no worsening or blurred vision ENT: normal hearing, no trouble swallowing Respiratory: No cough, sputum, dyspnea at rest or on exertion Cardiovascular: No chest pain, tightness or palpitations Abdomen: No pain, nausea, vomiting, diarrhea or constipation Musculoskeletal: See HPI. No calf pain, swelling Neurologic: No weakness, numbness/tingling, or balance problems Psychiatric: No anxiety or depression Skin: No rash or itch PE: General: awake, alert, no apparent distress, + overweight Head: Normocephalic, atraumatic ENT: PERRL, EOMI, no pharyngeal exudate, mucous membranes moist Chest: Clear to auscultation, on room air, no adventitious breath sounds Cardiac: Regular rate and rhythm, no murmur, no JVD, normal peripheral pulses, good capillary refill Abdominal: NABS x 4 quadrants, soft, nontender to palpation, no rebound, guarding or tenderness Extremities: + Left hand with puncture wounds over medial and lateral wrist aspects, healing well, erythema surrounding the wrist and up partial forearm is dull, no warmth. Minimal pain with wrist extension and flexion, ulnar and radial deviation. No point tenderness. Patient is able to make a fist. Otherwise extremities normal inspection, no peripheral edema or erythema, calfs nontender to palpation Psych: Normal mood and affect Neuro: AAO x 3, strength intact bilaterally and related 5/5, no motor deficits, speech is clear, no peripheral sensory deficits Hospital Course 66 yo female with dog bite cellulitis to her hand failing outpatient treatment Dog bite cellulitis - blood cultures are pending, WBC improved to 7K, afebrile overnight - Cont IV ciprofloxacin and metronidazole ( started 05/11) x 12 more days to complete a two-week course. Patient has been transitioned to PO antibiotics. - Good mobility, minimal pain/tenderness. Patient can take Tylenol for any pain at home. - X-ray of the wrist was reviewed. - Patient was counseled if redness or swelling do not improve over the next few days at home she should call her PCP or return to the ER. Significant bipolar disorder - Stable - Cont Cymbalta, Lamictal and lithium. - Her lithium level was checked and is 1.0 Hypothyroidism - stable - Cont Synthroid at 50 g daily Hypertension - Cont metoprolol 12.5 mg BID DVT prevention is early ambulation CODE STATUS: FULL CODE Disposition: From home, discharge today. Total Time Spent: Greater than 30 minutes This includes examination of the patient, discharge planning, medication reconciliation, and communication with other providers. Discharge Instructions Please refer to the electronic Patient Visit Report (Discharge Instructions) for additional information. Follow-Up Follow up with your Primary Care Provider within 1 week. Additional Copies To Radha Thakkar M.D.
== END 2017-05-12 14:45 | disposition home or self-care (01) | DRG 603 ==
LOC: C.EDB 13:34 → C.MS2W 17:26 → ENRESERV 17:32 → EDBEDREQ 17:33
PROVIDERS: ADMIT Internal Medicine; ATTEND Internal Medicine
DX: L03.114 Cellulitis of left upper limb (principal); F31.9 Bipolar disorder, unspecified; M81.0 Age-related osteoporosis without current pathological fracture; Z83.3 Family history of diabetes mellitus; Z87.891 Personal history of nicotine dependence; Z88.0 Allergy status to penicillin; E03.9 Hypothyroidism, unspecified; Z88.8 Allergy status to other drugs, medicaments and biological substances; I10 Essential (primary) hypertension; W54.0XXA Bitten by dog, initial encounter; Y93.K9 Activity, other involving animal care; Y92.019 Unspecified place in single-family (private) house as the place of occurrence of the external cause

== ENCOUNTER → 2017-06-27 | Outpatient (CLI) | payer OTHER ==
[~2017-06-27] MED LIST changes: +CHOL1TAB12 PO; +CPR500 PO; +CYM/30 PO; -ERGO1TAB10 PO; -LPR25 PO; +METO25TA56 PO; -OMEP20TA PO; +PRLSR20 PO; -VENL150C56 PO
[2017-06-27 17:09] LABS: CREATININE 0.96 mg/dl (0.60-1.20)
== END | disposition home or self-care (01) ==
LOC: C.LABBFT 12:26
PROVIDERS: ATTEND Psychiatry & Neurology Child & Adolescent Psychiatry
DX: F31.81 Bipolar II disorder (principal)

== ENCOUNTER → 2017-07-21 | Outpatient (CLI) | payer OTHER | END | disposition home or self-care (01) | LOC: C.LABBFT 14:02 | PROVIDERS: ATTEND Psychiatry & Neurology Child & Adolescent Psychiatry | DX: F31.81 Bipolar II disorder (principal) ==

== ENCOUNTER → 2017-11-13 | Outpatient (CLI) | payer OTHER ==
[~2017-11-13] MED LIST changes: -B-CO1CAP17 PO; +B-COCAP2 PO
== END | disposition home or self-care (01) ==
LOC: C.LABBFT 08:25
PROVIDERS: ATTEND Internal Medicine
DX: K52.9 Noninfective gastroenteritis and colitis, unspecified (principal); R11.2 Nausea with vomiting, unspecified

== ENCOUNTER 2020-07-31 07:15 | Inpatient (IN) ==
--- NOTE | 2020-07-04 16:46 | PAT Medication Instructions ---
Medication Instructions Date of Service July 04, 2020 Home Medications cholecalciferol (vitamin D3) [Vitamin D3] 6,000 unit PO HS lamotrigine [Lamictal] 150 mg PO QAM meclizine 12.5 mg PO BID PRN pantoprazole 40 mg PO BID levothyroxine 50 mcg tablet 50 mcg PO QAM acetaminophen [Acetaminophen Extra Strength] 1,000 mg PO Q6H PRN gabapentin 100 mg PO UD lamotrigine [Lamictal] 50 mg PO HS ziprasidone HCl [Geodon] 40 mg PO QPM Take morning of surgery With a small sip of water, OTHERWISE NOTHING TO EAT OR DRINK AFTER MIDNIGHT: lamotrigine [Lamictal] 150 mg PO QAM meclizine 12.5 mg PO BID PRN (if needed) pantoprazole 40 mg PO BID levothyroxine 50 mcg tablet 50 mcg PO QAM acetaminophen [Acetaminophen Extra Strength] 1,000 mg PO Q6H PRN (okay to take up to 4 hours prior to surgery if needed) gabapentin 100 mg PO UD Take evening before surgery cholecalciferol (vitamin D3) [Vitamin D3] 6,000 unit PO HS meclizine 12.5 mg PO BID PRN (if needed) pantoprazole 40 mg PO BID acetaminophen [Acetaminophen Extra Strength] 1,000 mg PO Q6H PRN (if needed) gabapentin 100 mg PO UD lamotrigine [Lamictal] 50 mg PO HS ziprasidone HCl [Geodon] 40 mg PO QPM Other Notes If you have any questions please call us at [phone] or [phone] or [phone] or [phone]
--- NOTE | 2020-07-05 10:41 | Anesthesiology Consultation ---
Date of Service July 05, 2020 Assessment & Plan (1) Encounter for pre-operative examination: Chart Review Chart Review: Pending: Refer to Additional Notes / Consult section (pending surgeon ordered PCP clearance scheduled 07/18 and preop Covid testing ) and Patient seen in Pre Admission Testing Awaiting surgeon ordered PCP clearance scheduled 07/18/20 - Check BSG AM DOS Per PAT appt on 07/05/20, patient denies any recent travel. No known Covid positive contacts or Covid related symptoms. No known Covid infection in the past 90 days. [place] [facility] [place]. Educated on importance of self quarantining, social distancing and wearing mask in public both for the patient and household contacts. Teaching & Discussion Pre-Anesthesia Teaching/Discussion Notes: Instructed NPO after midnight before surgery,except medications with 15 cc of water. Medication instructions provided according to the PAT guidelines. History Surgery Operation Date: 07/31/20 11:20 Proposed Procedures p Right Total Hip Arthroplasty Uncemented Posterior Approach - Ousmane Wright DO Height/Weight Height: 5 ft 5.5 in Weight: 83.3 kg Allergies Allergy/AdvReac Type Severity Reaction Status Date / Time Penicillins Allergy Severe Anaphylaxis Verified 07/03/20 14:18 phenobarbital Allergy Severe Anaphylaxis Verified 07/03/20 14:18 Iodinated Contrast Media Allergy Intermediate SWELLING/HI Verified 07/03/20 14:18 VES NSAIDS (Non-Steroidal AdvReac Mild D/T Verified 07/05/20 10:48 Anti-Inflamma POSSIBLE ULCER Medications Home Medications Medication Instructions Recorded Confirmed Last Taken cholecalciferol (vitamin D3) 6,000 unit PO HS 04/20/18 07/03/20 12/09/18 21:00 [Vitamin D3] lamotrigine [Lamictal] 150 mg PO QAM 04/20/18 07/03/20 12/10/18 21:00 meclizine 12.5 mg PO BID PRN 04/20/18 07/03/20 06/15/18 07:30 pantoprazole 40 mg PO BID 07/07/18 07/03/20 12/10/18 21:00 levothyroxine 50 mcg tablet 50 mcg PO QAM 11/04/18 07/03/20 12/10/18 09:00 acetaminophen [Acetaminophen Extra 1,000 mg PO Q6H PRN 07/03/20 07/03/20 Unknown Strength] gabapentin 100 mg PO UD 07/03/20 07/03/20 Unknown lamotrigine [Lamictal] 50 mg PO HS 07/03/20 07/03/20 Unknown ziprasidone HCl [Geodon] 40 mg PO QPM 07/03/20 07/03/20 Unknown hydroxyzine HCl 25 mg PO BID PRN 07/05/20 07/05/20 Unknown lubiprostone [Amitiza] 24 mcg PO BID 07/05/20 07/05/20 Unknown metformin 500 mg PO BID 07/05/20 07/05/20 Unknown polyethylene glycol 3350 [Miralax] 17 g PO DAILY 07/05/20 07/05/20 Unknown Past Medical History Medical History (Updated 07/06/20 @ 07:53 by Anca Pacheco PA-C) AIVR (accelerated idioventricular rhythm) 2017 (PER RECORDS)- Pt denies issues since 2017 Follows only with PCP Anxiety and depression Bipolar disorder Cardiac murmur MILD PER PATIENT. No valve issues per 2017 ECHO No significant murmur noted at 07/05/20 PAT appt Erythema nodosum DX 1975 No current issues GERD (gastroesophageal reflux disease) Stable and controlled Hypothyroidism Osteoarthritis Osteoporosis Prediabetes Seizure "PETIT MAL PATTERN" EPILEPSY (DX CHILDHOOD); LAST SEIZURE OVER 20 YEARS AGO>STILL FOLLOWS WITH DR. LEDESMA Exercise / Class Metabolic Activity III < 4 Walking/Shop/Light housework (no chest pain or SOB with flat surface ambulation ) Past Family History Family History Father Family history of diabetes mellitus Grandfather (Paternal) Family history of diabetes mellitus Grandmother (Paternal) Family history of diabetes mellitus Grandmother (Maternal) Family history of diabetes mellitus Other No family history of adverse response to anesthesia Past Surgical History Surgical History History of bilateral tubal ligation History of bone marrow biopsy History of cataract surgery RT/LEFT History of section X2 History of colonoscopy History of esophagogastroduodenoscopy (EGD) History of open reduction and internal fixation (ORIF) procedure LEFT ANKLE History of surgery EUS x2 last 10/16/18 History of tonsillectomy History of tooth extraction History of wisdom tooth extraction Status post wrist surgery RT/LEFT Past Anesthesia History No Hx of Anesthesia Complications and No Family Hx of Anesthesia Complications History of PONV No Hx of PONV and No Hx of Motion Sickness Social History Smoking Status: Former smoker tobacco type: cigarettes Smoking cigarettes per day: QUIT IN 2010 Do You Dip or Chew Tobacco: No Hx Alcohol Use: Yes Alcohol type: beer and wine alcohol intake frequency: a few times a week Hx Substance Use: No substance use type: does not use Review of Systems Patient denies chest pain, shortness of breath, dyspnea on exertion, cough, wheezing, palpitations. No hx of stroke, MS, apnea/snoring. No hx of blood clots or blood transfusions Physical Exam Vital Signs VITALS BP 123/81 P 68 TEMP 97.9 SP02 100% RESP 16 Constitutional no acute distress ENMT Mouth: no TMJ clicking Thyromental Distance: > or= 3.5 Finger Breadths (3.5) Mallampati Class: III Full upper denture Bottom teeth are permanent implant Neck + limited neck extension Respiratory normal respiratory effort; no respiratory distress Auscultation: lungs clear to auscultation bilaterally; no wheezes Cardiovascular Rate/Rhythm: regular rate and regular rhythm Heart Sounds: no murmur Vessels: no carotid bruit Musculoskeletal Spine: no pain with cervical ROM Extremities: extremities normal to inspection Psychiatric Orientation: alert Testing Laboratory Results 07/05/20 11:11 07/05/20 11:11 PT 9.9 Seconds (9.0-12.0) 07/05/20 11:11 INR 1.0 (0.9-1.1) 07/05/20 11:11 APTT 26.3 Seconds (21.0-31.0) 07/05/20 11:11 Hemoglobin A1c 5.7 % (4.5-5.6) H 07/05/20 11:11 Urine Color Yellow 07/05/20 Unknown Urine Appearance Clear (Clear) 07/05/20 Unknown Urine pH 5.0 (4.5-7.5) 07/05/20 Unknown Ur Specific [place] 1.013 (1.000-1.030) 07/05/20 Unknown Urine Protein Negative (Negative) 07/05/20 Unknown Urine Glucose (UA) Negative (Negative) 07/05/20 Unknown Urine Ketones Negative (Negative) 07/05/20 Unknown Urine Nitrite Negative (Negative) 07/05/20 Unknown Ur Leukocyte Esterase 1+ (Negative) H 07/05/20 Unknown Urine WBC (Auto) 1-5 /hpf (0-5) 07/05/20 Unknown Urine RBC (Auto) 0-4 /hpf (0-4) 07/05/20 Unknown U Hyaline Cast (Auto) 1-5 /lpf (0-5) 07/05/20 Unknown U Epithel Cells (Auto) 20-30 /lpf (0-5) H 07/05/20 Unknown Urine Bacteria (Auto) Negative (Negative) 07/05/20 Unknown Blood Type O Positive 07/05/20 11:11 Antibody Screen NEGATIVE 07/05/20 11:11 Electrocardiogram Date: 07/05/20 Findings: + NSR @ (66bpm) Normal EKG per cardio. Chest X-Ray Date: 07/05/20 Emphysematous change with no active disease in the chest. There is bibasilar scarring/atelectasis. Echocardiogram Date: 11/01/16 LV Function: normal RWMA: + none EF 65-70%. Grade I DD. No significant valvular disease. Stress Test Date: 11/01/16 Positive stress ECHO for inducible ischemia. 87% MPHR. 4.6 METS. Subsequent cardiac cath done 11/04/16 Cardiac Catheterization Date: 11/04/16 Normal coronary arteries without evidence of obstructive coronary disease. Normal intracardiac pressures.
[2020-07-05 11:25] LABS: Basophils # (auto) 0.11 K/uL (0-0.2); Basophils % (auto) 1.6 %; Eosinophils # (auto) 0.09 K/uL (0-0.5); Eosinophils % (auto) 1.3 %; Hematocrit (blood only) 38.5 % (37-47); Hemoglobin 12.3 g/dL (12.0-16.0); Immature Granulocytes # (auto) 0.01 K/uL (0.00-0.02); Immature Granulocytes % (auto) 0.1 %; Lymphocytes # (auto) 1.45 K/uL (1.2-3.4); Lymphocytes % (auto) 20.9 %; Mean Corpuscular Hemoglobin 29.1 pg (25-34); Mean Corpuscular Hgb Conc 31.9 g/dL (32-36); Mean Corpuscular Volume 91.2 fL (80-100); Mean Platelet Volume 9.2 fL (7.4-10.4); Monocytes # (auto) 0.39 K/uL (0.11-0.59); Monocytes % (auto) 5.6 %; Neutrophils # (auto) 4.89 K/uL (1.4-6.5); Neutrophils % (auto) 70.5 %; Platelet Count 322 K/uL (130-400); RDW Coefficient of Variation 12.9 % (11.5-14.5); Red Blood Count 4.22 M/uL (4.2-5.4); White Blood Count 6.94 K/uL (4.8-10.8)
[2020-07-05 11:41] LABS: Estimated Average Glucose 117 mg/dl; Hemoglobin A1C 5.7 % (4.5-5.6)
[2020-07-05 11:46] LABS: Partial Thromboplastin Time 26.3 Seconds (21.0-31.0); Prothrombin Time 9.9 Seconds (9.0-12.0)
[2020-07-05 11:47] LABS: Appearance Urine Clear (Clear); Bacteria Urine Automated Negative (Negative); Bilirubin Urine Negative (Negative); Blood Urine Negative (Negative); Color Urine Yellow; Epithelial Cell Urine Auto 20-30 /lpf (0-5); Glucose Urine UA Negative (Negative); Ketones Urine Negative (Negative); Leukocyte Esterase Urine 1+ (Negative); Nitrite Urine Negative (Negative); Protein Urine Negative (Negative); RBC Urine Automated 0-4 /hpf (0-4); Specific Gravity Urine 1.013 (1.000-1.030); Urobilinogen Urine Negative (Negative)
--- NOTE | 2020-07-05 12:14 | XRay Report ---
TWO VIEW CHEST CLINICAL HISTORY: Preoperative examination. FINDINGS: PA and lateral chest radiographs are compared to study dated 10/31/2016. The cardiomediastin al silhouette is unremarkable. Emphysema and chronic interstitial thickening is similar to previous. There is bibasilar scarring/atelectasis. No airspace consolidation or large pleural effusion is ident ified. There is no pneumothorax. The skeletal structures are osteopenic. The bony thorax appears inta ct. IMPRESSION: Emphysematous change with no active disease in the chest. ACT 112: Negative or not required by law. Electronically signed by: David Conley M.D. 07/05/2020 12:12 PM
[2020-07-05 14:15] LABS: Albumin Level 3.9 gm/dl (3.4-5.0); BUN Creatinine Ratio 24.5 (10-20); Calcium 9.9 mg/dl (8.5-10.1); Creatinine Clr Calc Pharmacy 64.2 ml/min; Est GFR (African American) 76.6; Est GFR (Non-African American) 66.1; Potassium 4.8 mmol/L (3.5-5.1)
--- NOTE | 2020-07-27 20:54 | History & Physical Report ---
Date of Service July 31, 2020 Assessment & Plan (1) Degenerative joint disease of right hip: I have indicated the patient for right total hip replacement. The risks, benefits and complications of surgery were explained to the patient which include but not limited to infection, acute blood loss, DVT/PE, injury to nerves, vessels, bone, soft tissue, arthrofibrosis, chronic pain, failure of the prosthesis, hip dislocation, leg length discrepancy, need for additional surgery, cardiac and pulmonary events and . The patient wished to proceed with surgery and informed consent was obtained at this time. We will plan for Xarelto post-operatively for DVT prophylaxis. Upon discharge the patient will be discharged home with home health services. Appropriate clearances by PCP were obtained. History of Present Illness Chief Complaint: Right hip pain/DJD Primary Care Provider: Heydi Conroy DO The patient is a 69 year old female who presents with complaints of severe right hip pain and DJD. The patient has failed outpatient conservative treatments to this point which included IA corticosteroid injection, activity modification, PT/HEP. The patient's pain and limited function have progressed to the point where they severely hinder their activities of daily living and they no longer tolerate exercise programs. They are requesting to proceed with total hip replacement surgery. Allergies Allergy/AdvReac Type Severity Reaction Status Date / Time Penicillins Allergy Severe Anaphylaxis Verified 07/31/20 08:28 phenobarbital Allergy Severe Anaphylaxis Verified 07/31/20 08:28 Iodinated Contrast Media Allergy Intermediate SWELLING/HI Verified 07/31/20 08:28 VES NSAIDS (Non-Steroidal AdvReac Mild D/T Verified 07/31/20 08:28 Anti-Inflamma POSSIBLE ULCER Home Medications Medication Instructions Recorded Confirmed Type cholecalciferol (vitamin D3) 6,000 unit PO HS 04/20/18 07/31/20 History [Vitamin D3] lamotrigine [Lamictal] 150 mg PO QAM 04/20/18 07/31/20 History meclizine 12.5 mg PO BID PRN 04/20/18 07/31/20 History pantoprazole [Protonix] 40 mg PO BID 07/07/18 07/31/20 History levothyroxine 50 mcg tablet 50 mcg PO QAM 11/04/18 07/31/20 History acetaminophen [Acetaminophen Extra 1,000 mg PO Q6H PRN 07/03/20 07/31/20 History Strength] gabapentin 100 mg PO UD 07/03/20 07/31/20 History lamotrigine [Lamictal] 50 mg PO HS 07/03/20 07/31/20 History ziprasidone HCl [Geodon] 40 mg PO QPM 07/03/20 07/31/20 History hydroxyzine HCl 25 mg PO BID PRN 07/05/20 07/31/20 History lubiprostone [Amitiza] 24 mcg PO BID 07/05/20 07/31/20 History metformin 500 mg PO BID 07/05/20 07/31/20 History polyethylene glycol 3350 [Miralax] 17 g PO DAILY 07/05/20 07/31/20 History clonidine HCl 0.1 mg PO HS 07/31/20 07/31/20 History Past Med/Surg History Medical History AIVR (accelerated idioventricular rhythm) 2017 (PER RECORDS)- Pt denies issues since 2017 Follows only with PCP Anxiety and depression Bipolar disorder Cardiac murmur MILD PER PATIENT. No valve issues per 2017 ECHO No significant murmur noted at 07/05/20 PAT appt Emphysema lung Erythema nodosum DX 1975 No current issues GERD (gastroesophageal reflux disease) Stable and controlled Hypothyroidism Osteoarthritis Osteoporosis Prediabetes Seizure "PETIT MAL PATTERN" EPILEPSY (DX CHILDHOOD); LAST SEIZURE OVER 20 YEARS AGO>STILL FOLLOWS WITH DR. LEDESMA Surgical History History of bilateral tubal ligation History of bone marrow biopsy History of cataract surgery RT/LEFT History of section X2 History of colonoscopy History of esophagogastroduodenoscopy (EGD) History of open reduction and internal fixation (ORIF) procedure LEFT ANKLE History of surgery EUS x2 last 10/16/18 History of tonsillectomy History of tooth extraction History of wisdom tooth extraction Status post wrist surgery RT/LEFT Family History Father Family history of diabetes mellitus Grandfather (Paternal) Family history of diabetes mellitus Grandmother (Paternal) Family history of diabetes mellitus Grandmother (Maternal) Family history of diabetes mellitus Other No family history of adverse response to anesthesia Social History Smoking Status: Former smoker Cigarettes Per Day: QUIT IN 2010; Second Hand Exposure: Yes (PARENT SMOKED); Do You Dip or Chew Tobacco: No; Tobacco Cessation Education Requested by Patient: No Hx Alcohol Use: Yes Alcohol type: beer and wine Hx Substance Use: No Preferred Language: Uzbek Communication Ability: Effective Visual Impairment: No Limitations Merchandising Execution Manager Required: No Beliefs That Will Affect Care: None Current Living Situation: Spouse Current Living Situation Comment: Lives with and son Feels Safe at Home: Yes Safety Concerns: Feels Safe At This Time Assistive Devices: Denture - Upper and Glasses Review of Systems Review of Systems: All systems reviewed & are unremarkable except as noted in HPI & below Constitutional: as per Subjective / HPI Physical Exam Physical Exam: RLE NVSI +EHL/FHL/TA/GS SILT grossly, +2 DP pulse, compartments soft NT, limited painful ROM of the hip, antalgic gait. Constitutional: WD/WN, vitals as above Eyes: PERRL, conjunctivae normal, anicteric sclerae ENMT: external ear and nose normal, oropharynx normal Neck: trachea midline, no thyromegaly Respiratory: normal respiratory effort, lungs clear to auscultation Cardiovascular: RRR, no murmur, no edema Gastrointestinal (Abdomen): normal bowel sounds, soft, nontender, no hepatosplenomegaly Musculoskeletal: no cyanosis or clubbing, extremities motor strength 5/5 Skin: no rashes, warm and dry Neurologic: patellar DTR's 2+ bilat, sensation intact Psychiatric: A+Ox3, euthymic affect Lymphatic: no cervical or axillary lymphadenopathy Results & Data Results & Data ([facility]) Diagnostic Findings Multiple views of the hip demonstrates severe DJD with complete loss of the joint space. +osteophytes, +sclerosis, +subchondral cysts. Pre Admission Testing Addendum Laboratory Results 07/05/20 11:11 07/05/20 11:11 PT 9.9 Seconds (9.0-12.0) 07/05/20 11:11 INR 1.0 (0.9-1.1) 07/05/20 11:11 APTT 26.3 Seconds (21.0-31.0) 07/05/20 11:11 Hemoglobin A1c 5.7 % (4.5-5.6) H 07/05/20 11:11 Urine Color Yellow 07/05/20 Unknown Urine Appearance Clear (Clear) 07/05/20 Unknown Urine pH 5.0 (4.5-7.5) 07/05/20 Unknown Ur Specific [place] 1.013 (1.000-1.030) 07/05/20 Unknown Urine Protein Negative (Negative) 07/05/20 Unknown Urine Glucose (UA) Negative (Negative) 07/05/20 Unknown Urine Ketones Negative (Negative) 07/05/20 Unknown Urine Nitrite Negative (Negative) 07/05/20 Unknown Ur Leukocyte Esterase 1+ (Negative) H 07/05/20 Unknown Urine WBC (Auto) 1-5 /hpf (0-5) 07/05/20 Unknown Urine RBC (Auto) 0-4 /hpf (0-4) 07/05/20 Unknown U Hyaline Cast (Auto) 1-5 /lpf (0-5) 07/05/20 Unknown U Epithel Cells (Auto) 20-30 /lpf (0-5) H 07/05/20 Unknown Urine Bacteria (Auto) Negative (Negative) 07/05/20 Unknown Blood Type O Positive 07/05/20 11:11 Antibody Screen NEGATIVE 07/05/20 11:11
[~2020-07-31 07:15] MED LIST changes: +ACETAMINOPHEN 500 MG TAB PO SCH; -ASPI-461 PO; -B-COCAP2 PO; -CHOL1TAB12 PO; -CPR500 PO; -CYM/30 PO; +FAMOTIDINE 20 MG TAB PO SCH; +GABAPENTIN 300 MG CAP PO SCH; -LAMO100T16 PO; -LEVO50TA PO; +LIDOCAINE HCL 2% 2 ML VIAL/AMP(20MG/ML) INFIL ONE; -LITH1TAB10 PO; -LORA-741 PO; +LR 500ML BOLUS, THEN 15ML/HR IV SCH; -METO25TA56 PO; +METOCLOPRAMIDE HCL 10 MG TABLET PO SCH; +MIDAZOLAM HCL 1 MG/ML 2ML VIAL ONE; -PRLSR20 PO; +PROPOFOL IV EMULSION 10 MG/ML 20 ML VIAL IV ONE; +ROPIVACAINE 0.5% HCL/PF 150 MG, BUPIVACAINE 0.75% MPF 20 ML, EPINEPHrine 30MG/30ML (OR ... INFIL SCH; +TRANEXAMIC ACID 1,000 MG **IV Intra-op IV SCH; +TRANEXAMIC ACID 1,000 MG **IV Pre-op IV SCH; +VANCOMYCIN HCL 1,250 MG in SODIUM CHLORIDE 0.9% 250 ML IV SCH; +dexAMETHasone 4 MG TAB PO SCH
[2020-07-31] MEDS ORDERED: BUPIVACAINE 0.5 % 5 MG/1 ML PF 10ML VIAL ONE (07:20)
[2020-07-31] MEDS ORDERED: ORTHO JOINT ANESTHETIC ONE (07:47)
--- NOTE | 2020-07-31 08:43 | History & Physical Bridge Note ---
Date of Service July 31, 2020 History & Physical Bridge Note I have examined the patient, reviewed the History & Physical and in the interval since the performance of the History & Physical I have noted the following changes of clinical significance: no changes noted
[2020-07-31] MEDS ORDERED: ONDANSETRON INJ 2 MG/ML 2 ML VIAL IV PRN ×2 (09:03→13:23)
[2020-07-31] MEDS ORDERED: ATROPINE SULFATE 0.1 MG/ML 10ML SYR IV PRN (09:03)
[2020-07-31] MEDS ORDERED: fentaNYL citrate 100 MCG/2 ML VIAL IV PRN (09:03)
[2020-07-31] MEDS ORDERED: ePHEDrine sulfate 50 MG/ML AMP IV PRN (09:03)
[2020-07-31] MEDS ORDERED: ePHEDrine sulfate 50 MG/ML AMP ONE (10:32)
[2020-07-31] MEDS ORDERED: PHENYLEPHRINE HCL 10 MG/ML VIAL ONE (10:32)
--- NOTE | 2020-07-31 10:43 | Post Operative Brief Note ---
Immediate Post Op Note v1 Date of Surgery July 31, 2020 Pre & Post Diagnosis Operation Date: 07/31/20 09:00 Pre-Op Diagnosis: Right Hip Degenerative Joint Disease Post-Op Diagnosis: Right Hip Degenerative Joint Disease I identified the patient and participated in the time-out.: Yes Procedure Operation Date: 07/31/20 09:00 Actual Procedures p Right Total Hip Arthroplasty Uncemented Posterior Approach(Right) - Ousmane Wright DO Surgeon Ousmane Wright DO Can Piler Virgil Dodd Estimated Blood Loss 155 Findings Consistent with Post-Op Diagnosis Fluids See anesthesia report Specimens Femoral head Anesthesia Type Spinal MAC Complications none Disposition Disposition: Recovery Room Overlapping Procedure I was present for: the critical portions of procedure. I was immediately available: during the entire case. Back up surgeon: was not required during procedure.
--- NOTE | 2020-07-31 10:45 | Operative Report ---
Post Operative Report Pre & Post Diagnosis Operation Date: 07/31/20 09:00 Pre-Op Diagnosis: Right Hip Degenerative Joint Disease Post-Op Diagnosis: Right Hip Degenerative Joint Disease I identified the patient and participated in the time-out.: Yes Procedure Operation Date: 07/31/20 09:00 Actual Procedures p Right Total Hip Arthroplasty Uncemented Posterior Approach(Right) - Ousmane Wright DO Surgeon Ousmane Wright DO Underliner Virgil Dodd Estimated Blood Loss 155 Findings Consistent with Post-Op Diagnosis Fluids See anesthesia report Specimens Femoral head Anesthesia Type Spinal MAC Disposition Disposition: Recovery Room Indications The patient is a 69-year-old female who presents with severe progressive right hip DJD who has failed outpatient conservative treatments. I indicated the patient for a total hip replacement and the risks and benefits were explained in detail which included but not limited to infection, bleeding, blood clot, damage to surrounding bone, nerves, vessels, soft tissue, hip dislocation, failure of the prosthesis, leg length discrepancy, need for additional surgery and . The patient agreed to proceed with replacement of the hip and informed consent was obtained. Appropriate clearances were obtained. Description of Procedure COMPONENTS USED: Anabell bone hip system: Acetabulum size 52 G7 osteo-Ti, femur size 11 extended offset, femoral head 36+0, liner 52x36, acetabular screw 30 mm x 1. Following induction of adequate spinal anesthesia, the patient was transferred to the OR table and placed in lateral decubitus position with left hip down. The right hip was prepped and draped in the typical sterile fashion. A timeout was performed, patient identified and site cindy confirmed. Appropriate antibiotics were given. A standard posterolateral/Radha-Langenbeck incision was made. Subcutaneous tissue was sharply dissected. Electrocautery was utilized for hemostasis. The fascia was incised throughout the length of the wound and retracted with the Charnley retractor. The bursa was taken down and the short external rotators were identified. The piriformis was tagged with #1 Vicryl. The short external rotators and capsule were divided from the posterior aspect of the femur using electrocautery. The posterior capsule was tagged with #1 Vicryl. Both external rotators and posterior capsule were swept posterior and protected, along with protecting the sciatic nerve. The hip was dislocated by flexion and internally rotation in a controlled manner and exposure of the fe moral neck was gained with an old-style Hohmann and a blunt cobra retractor. A femoral cutting guide was utilized for making the appropriate level femoral neck cut with reciprocating saw. The femoral head was removed, measured and reserved on the back table. Next, attention was turned to the acetabulum. A posterior and anterior offset retractor was placed to gain adequate exposure. Acetabular labrum as well as posterior capsule elements were removed using electrocautery and forceps. Fovea centralis was cleared of all soft tissue. Sequential reaming was performed starting at 46 mm and carried up to a 51 mm and decision was made to proceed with impaction of a 52 mm G7 Osteo-Ti cup. This was impacted and held using a single 30 mm acetabular screw. The trial acetabular liner was placed at this time. Next, attention was turned to the proximal femur where a Bovie and pickup was used to further clear short external rotators from their insertion on the femur. Box osteotome and canal finder was used to gain access to the femoral canal and the lateral reamer on power was used to further open the proximal lateral canal. Sequentially rasping was carried up to a 11 which gave good fit and fill of the proximal femur. A trial reduction was carried out with a standard extended offset femoral neck component a 36+0 mm femoral head. The trial reduction was stable in all degrees of rotation with no [id number] impingement. The hip was dislocated, trial components were removed and access to the acetabulum was re-established. The trial liner was removed and the cup was irrigated to ensure all debris was removed. The final acetabular liner was inserted and properly seated in the cup. Access to the femur was once more gained and the size 11 femoral stem with standard extended offset was impacted into position. The hip was once more assessed with the 36+0 mm femoral head. Stability was accessed and found to be excellent with equal leg lengths. The hip was dislocated for the last time and the final 36+0 ceramic femoral head was impacted in place and the hip was reduced. Range of motion was checked once again and found to be stable. A Betadine soak was performed. After 3 minutes, the hip was once more irrigated with copious sterile saline solution with bacitracin. The iveth-incisional soft tissue was injected utilizing [place] ortho mix which includes a combination of Ropivicaine 0.5% 150mg, Bupivicaine 0.5%/Epinephrine 1:200,000 30ml, Toradol 30mg, Dexamethasone 4mg, Ketamine 10mg, Clonidine 100mcg and NSS 30ml Orthomix solution. The piriformis, external rotators and capsule were repaired to the greater trochanter through bone tunnels using #5 FiberWire. The fascia was closed using #1 Vicryl, subcutaneous tissue was closed using 2-0 Vicryl, and s kin was closed with deonte and a sterile dry dressing was applied which included jeanie incisional VAC. The patient tolerated the procedure well and was transported to PACU in stable condition. Due to the complex nature of the procedure, the entire surgery was performed with the operational assistance of Virgil Dodd PA-C. The recruitment assistant, under direct supervision, was involved in the actual performance of all aspects of the surgical procedure including patient positioning, hemostasis, tissue retraction, instrument management and wound closure. I attest to the content of the Intraoperative Record and any orders documented therein. Any exceptions are noted below.
--- NOTE | 2020-07-31 11:41 | XRay Report ---
XR hip 1V RT w pelvis CLINICAL HISTORY: Postoperative evaluation. COMPARISON: CT of the abdomen and pelvis December 28, 2018. FINDINGS: Alignment of the total right hip arthroplasty is anatomic. There is no periprosthetic frac ture or unexpected radiopaque foreign body. Acetabular screws and skin deonte are noted. IMPRESSION: Expected findings following total right hip arthroplasty. ACT 112: Negative or not required by law. Electronically signed by: Martin Thakkar M.D. 07/31/2020 11:39 AM
--- NOTE | 2020-07-31 12:28 | Anesthesiology Progress Note ---
Date of Service July 31, 2020 Anesthesia Post Procedure Vital Signs Vital Signs: Temp Pulse Pulse Resp BP Pulse Ox 07/31/20 12:20 36.1 C L 62 14 117/73 98 07/31/20 12:10 58 L 12 121/61 98 07/31/20 12:00 62 12 114/65 98 07/31/20 11:50 65 12 120/61 95 07/31/20 11:40 61 14 113/65 98 07/31/20 11:30 65 14 129/70 97 07/31/20 11:20 53 L 12 104/58 L 100 07/31/20 11:10 60 18 99/59 L 100 07/31/20 11:02 36.3 C L 58 L 15 112/61 99 07/31/20 08:34 36.7 C 72 18 128/72 99 Transfer of Care Handoff Completed per policy Notes Mental Status: alert / awake / arousable and participated in evaluation Nausea / Vomiting: adequately controlled Pain: adequately controlled Airway Patency, RR, SpO2: stable & adequate BP & HR: stable & adequate Hydration State: stable & adequate Neuraxial Anesthesia: was administered and sensory block is resolving Anesthetic Complications: no major complications apparent and Pt Satisfied with anesthetic care
[2020-07-31] MEDS ORDERED: hydrOXYzine HCl 25 MG TAB PO PRN (13:23)
[2020-07-31] MEDS ORDERED: diphenhydrAMINE Capsule 25 MG CAP PO PRN (13:23)
[2020-07-31] MEDS ORDERED: NALOXONE HCL 0.4 MG/1 ML VIAL/CARP IV PRN (13:23)
[2020-07-31] MEDS ORDERED: oxyCODONE HCL IR 5 MG TAB (IMMEDIATE RELEASE) PO PRN (13:23)
[2020-07-31] MEDS ORDERED: MECLIZINE 12.5 MG TAB PO PRN (13:23)
[2020-07-31] MEDS ORDERED: METOCLOPRAMIDE HCL INJ 5 MG/ML 2 ML VIAL IV PRN (13:23)
[2020-07-31] MEDS ORDERED: HYDROmorphone INJ 0.5 MG/0.5 ML SYR IV PRN (13:23)
[2020-07-31] MEDS ORDERED: bisacodyL 10 MG SUPP PR PRN (13:23)
[2020-07-31] MEDS ORDERED: VANCOMYCIN CONSULT ACTIVE PRN (13:23)
[2020-07-31] MEDS ORDERED: MAGNESIUM HYDROXIDE SUSP 30 ML UDC PO PRN (13:23)
[2020-07-31] MEDS ORDERED: PHARMACY GLYCEMIC MGMT CONSULT PRN (14:09)
--- NOTE | 2020-07-31 14:22 | Pharmacy Report ---
Pharmacy Glycemic Short Note 2 - Date of Service July 31, 2020 - Glycemic Short BSG Results (Last 24 hours): 07/31/20 07:53 POC Glucose 101 H OUTPATIENT ANTIDIABETIC REGIMEN: * metformin 500 mg PO BIDM * HbA1c: 5.7% (07/05/20) ASSESSMENT: * SK is a 69 year old female POD #0 s/p right NILDA * Received 8 mg PO dexamethasone + intra-articular ortho mix containing dexamethasone intraoperatively * Preop BSG of 101 mg/dL * Given A1c and low fasting BSG will hold basal and use Novolog only at this time * Consider changing to outpatient metformin tomorrow PLAN FOR INPATIENT GLYCEMIC CONTROL: * Hold outpatient oral diabetes medications (metformin) - possibly restart tomorrow * Basal insulin * hold * Bolus insulin * NovoLog per scale ACHS or Q6hrs while NPO * Goal Range: Low 110 mg/dL - High 140 mg/dL * Correction Factor: 25 mg/dL/unit * Nutritional / Prandial insulin per carb ratio of 1 unit per 8 grams CHO consumed * 0000 check this evening with same parameters PLAN FOR DISCHARGE: * HbA1c of 5.7% demonstrates excellent outpatient glycemic control * Continue metformin 500 mg PO BIDM
[2020-07-31] MEDS ORDERED: GLUCOSE 40% GEL 15 GM TUBE PO PRN (14:45)
[2020-07-31] MEDS ORDERED: DEXTROSE 50% 50 ML SYRINGE IV PRN (14:45)
[2020-07-31] MEDS ORDERED: CARBOHYDRATES FOR HYPOGLYCEMIA PO PRN (14:45)
[2020-07-31] MEDS ORDERED: GLUCAGON FOR INJ 1 MG VIAL IM PRN (14:45)
[2020-07-31] MEDS ORDERED: GLUCOSE 10 TABS/TUBE PO PRN (14:45)
[2020-07-31] MEDS: SODIUM CHLORIDE 0.9% 1000ML 1,000 ML IV SCH ×2 (15:06→23:29)
[2020-07-31] MEDS: ACETAMINOPHEN 500 MG TAB PO SCH ×2 (15:07→20:41)
[2020-07-31] MEDS: INSULIN ASPART 100 UNITS/ML 3 ML PEN SC SCH ×3 (16:20→21:02)
[2020-07-31] MEDS ORDERED: Nursing to Pharmacy Communication SCH (16:30)
--- NOTE | 2020-07-31 18:28 | Orthopedic Progress Note ---
Date of Service July 31, 2020 Assessment & Plan (1) Degenerative joint disease of right hip: Status post right total hip arthroplasty -Vanco x24 -DVT prophylaxis: SCDs, teds, Xarelto daily -Weight-bear as tolerated right lower extremity -Posterior hip precautions -PT/OT -Postoperative x-ray demonstrates a well aligned well fixed prosthesis without fracture or dislocation -A.m. labs -DC planning Admission and Anticipated Discharge Date Admission Date: July 31, 2020 Subjective Post Operative Progress Note Patient seen sitting up in bed, comfortable, denies complaints, pain well controlled, no acute issues. Review of Systems Review of Systems: All systems reviewed & are unremarkable except as noted in HPI & below Constitutional: as per Subjective / HPI Physical Exam Physical Exam: RLE NVSI +EHL/FHL/TA/GS SILT grossly, +2 DP pulse, compartments soft NT, dressing cdi. Constitutional: WD/WN, vitals as above Results & Data ([facility]) Vital Signs (Past 12 Hours) Vital Signs Temp Pulse Pulse Pulse Resp BP BP 07/31/20 16:17 36.8 C 77 17 106/69 07/31/20 15:09 36.3 C L 84 16 117/74 07/31/20 14:15 37 C 82 20 113/69 07/31/20 13:45 36.5 C 75 18 136/85 07/31/20 13:15 36.5 C 71 16 117/74 07/31/20 13:00 63 12 122/67 07/31/20 12:45 66 12 116/64 07/31/20 12:30 60 16 124/59 L 07/31/20 12:20 36.1 C L 62 14 117/73 07/31/20 12:10 58 L 12 121/61 07/31/20 12:00 62 12 114/65 07/31/20 11:50 65 12 120/61 07/31/20 11:40 61 14 113/65 07/31/20 11:30 65 14 129/70 07/31/20 11:20 53 L 12 104/58 L 07/31/20 11:10 60 18 99/59 L 07/31/20 11:02 36.3 C L 58 L 15 112/61 07/31/20 08:34 36.7 C 72 18 128/72 Pulse Ox 07/31/20 16:17 98 04/26/21 15:09 95 07/31/20 14:15 97 07/31/20 13:45 97 07/31/20 13:15 98 07/31/20 13:00 95 07/31/20 12:45 94 07/31/20 12:30 93 07/31/20 12:20 98 07/31/20 12:10 98 07/31/20 12:00 98 07/31/20 11:50 95 07/31/20 11:40 98 07/31/20 11:30 97 07/31/20 11:20 100 07/31/20 11:10 100 07/31/20 11:02 99 07/31/20 08:34 99
[2020-07-31] MEDS ORDERED: VANCOMYCIN HCL 1,250 MG in SODIUM CHLORIDE 0.9% 250 ML IV SCH (20:00)
[2020-07-31] MEDS: PANTOprazole 40 MG TAB PO SCH (20:42)
[2020-07-31] MEDS: DOCUSATE SODIUM 100 MG CAP PO SCH (20:43)
[2020-07-31] MEDS: LUBIPROSTONE 8 MCG CAP PO SCH (20:43)
[2020-07-31] MEDS ORDERED: GABAPENTIN 100 MG CAP PO SCH (21:00)
[2020-07-31] MEDS ORDERED: lamoTRIgine 25 MG TAB PO SCH (21:00)
[2020-07-31] MEDS ORDERED: cloNIDine HCL 0.1 MG TAB PO SCH (21:00)
[2020-07-31] MEDS ORDERED: SENNA 8.6 MG TAB PO SCH (21:00)
[2020-08-01] MEDS ORDERED: INSULIN ASPART 100 UNITS/ML 3 ML PEN SC SCH
[2020-08-01] MEDS ORDERED: LEVOTHYROXINE SODIUM 50 MCG TABLET PO SCH (06:30)
[2020-08-01] MEDS: ACETAMINOPHEN 500 MG TAB PO SCH ×2 (06:35→13:56)
[2020-08-01 06:40] LABS: Basophils # (auto) 0.06 K/uL (0-0.2); Basophils % (auto) 0.6 %; Eosinophils # (auto) 0.02 K/uL (0-0.5); Eosinophils % (auto) 0.2 %; Hematocrit (blood only) 30.9 % (37-47); Hemoglobin 10.1 g/dL (12.0-16.0); Immature Granulocytes # (auto) 0.01 K/uL (0.00-0.02); Immature Granulocytes % (auto) 0.1 %; Lymphocytes # (auto) 1.42 K/uL (1.2-3.4); Lymphocytes % (auto) 15.1 %; Mean Corpuscular Hemoglobin 29.2 pg (25-34); Mean Corpuscular Hgb Conc 32.7 g/dL (32-36); Mean Corpuscular Volume 89.3 fL (80-100); Mean Platelet Volume 9.7 fL (7.4-10.4); Monocytes # (auto) 0.73 K/uL (0.11-0.59); Monocytes % (auto) 7.8 %; Neutrophils # (auto) 7.15 K/uL (1.4-6.5); Neutrophils % (auto) 76.2 %; Platelet Count 269 K/uL (130-400); RDW Coefficient of Variation 13.1 % (11.5-14.5); RDW Standard Deviation 42.3 fL (36.4-46.3); Red Blood Count 3.46 M/uL (4.2-5.4); White Blood Count 9.39 K/uL (4.8-10.8)
[2020-08-01 07:09] LABS: BUN Creatinine Ratio 32.7 (10-20); Calcium 8.7 mg/dl (8.5-10.1); Creatinine Clr Calc Pharmacy 76.7 ml/min; Est GFR (African American) 95.8; Est GFR (Non-African American) 82.7; Potassium 3.9 mmol/L (3.5-5.1)
[2020-08-01] MEDS: DOCUSATE SODIUM 100 MG CAP PO SCH (08:17)
[2020-08-01] MEDS: LUBIPROSTONE 8 MCG CAP PO SCH (08:17)
[2020-08-01] MEDS: PANTOprazole 40 MG TAB PO SCH (08:17)
[2020-08-01] MEDS: INSULIN ASPART 100 UNITS/ML 3 ML PEN SC SCH ×3 (08:22→17:31)
[2020-08-01] MEDS ORDERED: GABAPENTIN 100 MG CAP PO SCH (09:00)
[2020-08-01] MEDS ORDERED: lamoTRIgine 100 MG TAB PO SCH (09:00)
[2020-08-01] MEDS ORDERED: RIVAROXABAN 10 MG TABLET PO SCH (09:00)
[2020-08-01] MEDS ORDERED: MULTIVITAMIN TAB PO SCH (09:00)
--- NOTE | 2020-08-01 13:25 | Orthopedic Progress Note ---
Date of Service August 01, 2020 Assessment & Plan (1) Degenerative joint disease of right hip: Status post right total hip arthroplasty POD#1 -Vanco x24 -DVT prophylaxis: SCDs, teds, Xarelto daily -Weight-bear as tolerated right lower extremity -Posterior hip precautions -PT/OT -Postoperative x-ray demonstrates a well aligned well fixed prosthesis without fracture or dislocation -A.m. labs - as above, hgb 10.1 -DC planning Admission and Anticipated Discharge Date Admission Date: July 31, 2020 Subjective Post Operative Progress Note Patient seen sitting up in bed, comfortable, admits to 7 out of 10" soreness", has only taking Tylenol, did not feel it was bad enough to warrant stronger pain medications, no acute issues. Denies F/C/N/V/SOB/CP. Review of Systems Review of Systems: All systems reviewed & are unremarkable except as noted in HPI & below Constitutional: as per Subjective / HPI Physical Exam Physical Exam: RLE NVSI +EHL/FHL/TA/GS SILT grossly, +2 DP pulse, compartments soft NT, dressing cdi. Constitutional: WD/WN, vitals as above Results & Data ([facility]) Vital Signs (Past 12 Hours) Vital Signs Temp Pulse Resp BP Pulse Ox 08/01/20 11:07 36.7 C 67 16 122/75 96 08/01/20 07:32 36.5 C 63 16 115/72 99 08/01/20 02:59 36.5 C 68 16 123/73 97 Laboratory Results 08/01/20 08/01/20 08/01/20 Range/Units 12:08 08:05 06:11 WBC (4.8-10.8) K/uL RBC (4.2-5.4) M/uL Hgb (12.0-16.0) g/dL Hct (37-47) % MCV (80-100) fL MCH (25-34) pg MCHC (32-36) g/dL RDW Std Deviation (36.4-46.3) fL RDW Coeff of [place] (11.5-14.5) % Plt Count (130-400) K/uL MPV (7.4-10.4) fL Immature Gran % (Auto) % Neut % (Auto) % Lymph % (Auto) % Mayes % (Auto) % Eos % (Auto) % Baso % (Auto) % Neut # (Auto) (1.4-6.5) K/uL Lymph # (Auto) (1.2-3.4) K/uL Mayes # (Auto) (0.11-0.59) K/uL Eos # (Auto) (0-0.5) K/uL Baso # (Auto) (0-0.2) K/uL Immature Gran # (Auto) (0.00-0.02) K/uL Sodium (136-145) mmol/L Potassium (3.5-5.1) mmol/L Chloride (98-107) mmol/L Carbon Dioxide (21-32) mmol/L Anion Gap (3-11) BUN (7-18) mg/dl Creatinine (0.6-1.2) mg/dl Est Cr Clr Drug Dosing ml/min Est GFR ( Amer) Est GFR (Non-Af Amer) BUN/Creatinine Ratio (10-20) Glucose (70-99) mg/dl POC Glucose 109 H 118 H (70-99) mg/dl Calcium (8.5-10.1) mg/dl Hepatitis C Ab Screen Neg (Neg) 08/01/20 08/01/20 07/31/20 Range/Units 06:11 06:11 20:51 WBC 9.39 (4.8-10.8) K/uL RBC 3.46 L (4.2-5.4) M/uL Hgb 10.1 L (12.0-16.0) g/dL Hct 30.9 L (37-47) % MCV 89.3 (80-100) fL MCH 29.2 (25-34) pg MCHC 32.7 (32-36) g/dL RDW Std Deviation 42.3 (36.4-46.3) fL RDW Coeff of [place] 13.1 (11.5-14.5) % Plt Count 269 (130-400) K/uL MPV 9.7 (7.4-10.4) fL Immature Gran % (Auto) 0.1 % Neut % (Auto) 76.2 % Lymph % (Auto) 15.1 % Mayes % (Auto) 7.8 % Eos % (Auto) 0.2 % Baso % (Auto) 0.6 % Neut # (Auto) 7.15 H (1.4-6.5) K/uL Lymph # (Auto) 1.42 (1.2-3.4) K/uL Mayes # (Auto) 0.73 H (0.11-0.59) K/uL Eos # (Auto) 0.02 (0-0.5) K/uL Baso # (Auto) 0.06 (0-0.2) K/uL Immature Gran # (Auto) 0.01 (0.00-0.02) K/uL Sodium 141 (136-145) mmol/L Potassium 3.9 (3.5-5.1) mmol/L Chloride 112 H (98-107) mmol/L Carbon Dioxide 23 (21-32) mmol/L Anion Gap 6.0 (3-11) BUN 24 H (7-18) mg/dl Creatinine 0.74 (0.6-1.2) mg/dl Est Cr Clr Drug Dosing 76.7 ml/min Est GFR ( Amer) 95.8 Est GFR (Non-Af Amer) 82.7 BUN/Creatinine Ratio 32.7 H (10-20) Glucose 114 H (70-99) mg/dl POC Glucose 157 H (70-99) mg/dl Calcium 8.7 (8.5-10.1) mg/dl Hepatitis C Ab Screen (Neg)
--- NOTE | 2020-08-01 23:14 | Discharge Summary ---
Date of Service August 01, 2020 Admission HPI Per Admitting Provider The patient is a 69 year old female who presents with complaints of severe right hip pain and DJD. The patient has failed outpatient conservative treatments to this point which included IA corticosteroid injection, activity modification, PT/HEP. The patient's pain and limited function have progressed to the point where they severely hinder their activities of daily living and they no longer tolerate exercise programs. They are requesting to proceed with total hip replacement surgery. Principal Diagnosis Right total hip replacement Discharge Exam RLE NVSI +EHL/FHL/TA/GS SILT grossly, +2 DP pulse, compartments soft NT, dressing cdi. Constitutional WD/WN, vitals as above Discharge Data Allergies Allergy/AdvReac Type Severity Reaction Status Date / Time Penicillins Allergy Severe Anaphylaxis Verified 07/31/20 08:28 phenobarbital Allergy Severe Anaphylaxis Verified 07/31/20 08:28 Iodinated Contrast Media Allergy Intermediate SWELLING/HI Verified 07/31/20 08:28 VES NSAIDS (Non-Steroidal AdvReac Mild D/T Verified 07/31/20 08:28 Anti-Inflamma POSSIBLE ULCER Procedures Performed Operation Date: 07/31/20 09:00 Actual Procedures p Right Total Hip Arthroplasty Uncemented Posterior Approach(Right) - Ousmane Wright DO Hospital Course (1) Degenerative joint disease of right hip: The patient is a 69 -year-old female who presents with long standing history of severe right hip DJD and failed outpatient conservative treatments. The patient's symptoms have progressed to the point where it has been difficult to perform even normal activities of daily living. I indicated the patient for a right total hip arthroplasty, the risks, benefits and complications of the procedure include but not limited to infection, bleeding, damage to bone, nerves, vessels, surrounding soft tissue, may develop blood clots, loss of function, leg length discrepancy, dislocation, failure of the components, loosening of the components, the need for additional surgery and . The patient wished to proceed with surgery at this time and informed consent was obtained. Hospital Course: On 07/31/20 the patient was taken to the operating room, adequate anesthesia administered and underwent a right total hip arthroplasty. The patient tolerated the procedure well and was taken to the PACU in stable condition. Post-operatively the patient was started on a DVT ppx medication and given appropriate IV antibiotics. Consults were placed to physical therapy, occupational therapy and case management. On POD#1, the patient did well overnight and their pain was well controlled. Labs were drawn and the Hgb was 10.1. The patient progressed well with PT. Dressings were changed at this time and the incision was clean, dry and intact. The patients hospital stay was relatively uneventful and they were deemed stable by the orthopedic team and consultants to be discharged home with on 08/01/20. Discharge Instructions: Upon discharge the patient may weight bear as tolerates through their operative extremity. They were instructed to keep the incision clean and dry at all times. The patient may shower but should not submerge the incision, avoid bathing, pools and hot tubs. The patient was given a script for pain medication and should take as instructed. The patient was given a script for DVT ppx Xarelto 10mg daily and should take as directed. The patient was instructed to not drive or travel for long distances until cleared to do so. If the patient develops any symptoms of fevers, chills, nausea, vomiting, increased redness, swelling, pain or drainage from the surgical site, they should notify the office and/or proceed to the nearest emergency room. The patient should follow up in 10-14 days after surgery for their routine post-operative follow-up appointment and should call the office, to confirm the date and time. Status post right total hip arthroplasty POD#1 -Vanco x24 -DVT prophylaxis: SCDs, teds, Xarelto daily -Weight-bear as tolerated right lower extremity -Posterior hip precautions -PT/OT -Postoperative x-ray demonstrates a well aligned well fixed prosthesis without fracture or dislocation -A.m. labs - as above, hgb 10.1 -DC planning Total Time Total Time Spent Total Time Spent (In Minutes): 30 Discharge Plan Discharge Items Patient Disposition: Home - Home Health Services Reason For Visit: Unilateral Primary Osteoarthritis of Right Hip Discharge Diagnosis: Right total hip replacement Condition on Discharge: Good Activity: Per Instructions section Lifting: Wait until after follow-up appointment Bathing: Keep incision dry Bathing Comment: No bathing, pools or hot tubs. Sexual Activity: Wait until after follow-up appointment Exercise/Sports: Wait until after follow-up appointment Driving/Machine Use: No driving. Weightbearing: Full weightbearing Non-emergency contact: Primary Care Provider and Surgeon Call non-emergency contact if: you have any medication questions, your symptoms worsen, your pain is not controlled, your pain is worsening, your pain is unusual for you, your pain is concerning for you, you have a fever, your temperature is above 101, your wound has increased redness, your wound has increased drainage and your wound pain has increased Follow-up/Referrals: Heydi Conroy, [Primary Care Provider] - Diet: Carb Consistent or DM2 Addtl Attending Provider Instructions: ACTIVITY RECOMMENDATIONS: SELF CARE INSTRUCTIONS AFTER TOTAL HIP REPLACEMENT Until the incision and soft tissues around your hip have healed, there is a possibility that the hip prosthesis could dislocate. A. Observe the following precautions to prevent dislocation: 1. Don't bend your hip greater than 90 degrees. 2. Avoid crossing your legs or ankles while standing or lying. 3. Sit with your feet placed 6 inches apart. 4. When sitting, keep your knees below your hips. Sit on a firm surface, avoid deep, soft chairs and couches. Use an elevated toilet seat in the bathroom. 5. Don't bend over at the waist. Use a long handled shoehorn and a sock aid to help you put on your shoes and socks. A resident programs assistant can help you pick out hand objects that are too high or too low to reach. 6. Keep car riding to a minimum for at least one month after surgery. B. Your balance may be shaky for a while. Use crutches or a walker until directed by your doctor. C. Use hand rails when walking on stairs. D. Wear low heeled shoes with non-slip soles. E. Be sure that your floors are free of things that could trip you - throw rugs, electrical cords, small objects. Avoid wet and waxed floors, especially with crutches and canes. F. Try to walk several times a day with rest periods between. G. Continue with all the exercises taught to you in the hospital. Again, make walking a part of your daily routine. SPECIAL CARE INSTRUCTIONS: VERY IMPORTANT TO READ AND REVIEW A. You may still be at risk for phlebitis and blood clots. 1. Wear surgical stockings (DWAYNE hose) for 2 weeks after surgery to improve circulation and reduce swelling. 2. Take Xarelto 10mg daily for 4 weeks or as directed by your doctor. This is your blood thinner. 3. High risk patients may be prescribed a stronger blood thinner if necessary. 4. If you are on Coumadin normally, your family doctor/cloth edge singer should monitor your blood work. Expect a phone call the day of or the day after bloodwork is drawn to adjust your dosage. B. You must take antibiotics before having dental work, bladder, bowel and other surgery. Your doctor will provide you with a permanent card to carry describing precautions. C. Call [facility] if you have a fever, redness or swelling around the incision, cloudy drainage from incision, or sudden increase in pain in your hip, not relieved by your regular pain medication. D. Please call the office at if you have any concerns or questions about your operation or recovery. * YOU MAY SHOWER, NO TUB BATHS UNTIL CLEARED BY YOUR DOCTOR. * WEAR DWAYNE HOSE 20 HOURS PER DAY FOR 2 WEEKS. * YOU SHOULD USE A WALKER OR CRUTCHES FOR 2-4 WEEKS. THIS WILL HELP PREVENT STRAIN ON YOUR HIP MUSCLE AND ALLOW IT TO HEAL PROPERLY. YOU MAY WEAN TO A CANE TOLERATED. * MOST PATIENTS WILL HAVE HOME NURSING FOR THERAPY. IF YOU DECIDE TO DO OUTPATIENT PHYSICAL THERAPY, PLEASE SCHEDULE THIS 3 TIMES PER WEEK. *JOVANY incisional vac is a special dressing covering your incision. This dressing provides a sterile dry environment while you are healing. The dressing is to be left in place for 7 days post-operatively. Your home nurse or surgeon will remove. If you develop any redness or blisters or have any questions notify your surgeon immediately. FOLLOW UP VISIT: If appointment is not already scheduled: Please call [facility] to make a follow-up appointment for 2 weeks after your surgery at . Pending Studies at Discharge: No Stand-Alone Forms: My Future Ad Labs, Smoking Cessation Medications and DC Order Prescriptions: New acetaminophen 500 mg Tablet 1,000 mg PO Q8 PRN (Reason: pain/fevers) Qty: 90 RF: 0 oxycodone 5 mg Tablet 5 mg PO Q6H MDD 4 PRN (Reason: pain) Qty: 30 RF: 0 sennosides [Senokot] 8.6 mg Tablet 17.2 mg PO HS PRN (Reason: constipation) Qty: 28 RF: 0 Xarelto 10 mg Tablet 10 mg PO DAILY Qty: 28 RF: 0 Continued levothyroxine 50 mcg tablet 50 mcg PO QAM RF: 0 lamotrigine [Lamictal] 150 mg Tablet 150 mg PO QAM RF: 0 meclizine 12.5 mg Tablet 12.5 mg PO BID PRN (Reason: Vertigo) RF: 0 cholecalciferol (vitamin D3) [Vitamin D3] 1,000 unit Tablet,Chewable 6,000 unit PO HS RF: 0 pantoprazole [Protonix] 40 mg Tablet,Delayed Release (Dr/Ec) 40 mg PO BID RF: 0 lamotrigine [Lamictal] 25 mg Tablet 50 mg PO HS RF: 0 ziprasidone HCl [Geodon] 40 mg Capsule 40 mg PO QPM RF: 0 gabapentin 100 mg Capsule 100 mg PO UD RF: 0 metformin 500 mg Tablet 500 mg PO BID RF: 0 polyethylene glycol 3350 [Miralax] 17 gram Powder In Packet 17 g PO DAILY RF: 0 hydroxyzine HCl 25 mg Tablet 25 mg PO BID PRN (Reason: Anxiety) RF: 0 lubiprostone [Amitiza] 24 mcg Capsule 24 mcg PO BID RF: 0 clonidine HCl 0.1 mg Tablet 0.1 mg PO HS RF: 0 Discontinued acetaminophen [Acetaminophen Extra Strength] 500 mg Tablet 1,000 mg PO Q6H PRN (Reason: Pain) RF: 0 Discharge Orders: Discharge Order (Routine); Ordered 08/01/20 Ordered By: Ousmane Wright Admission Data Admit Date/Time: 07/31/20 11:14 Attending Provider: Ousmane Wright Admit Provider: Ousmane Wright Primary Care Provider: Heydi Conroy Other Interventions: Discharge Summary Assessment (RN) Last Done: 08/01/20 14:28
== END 2020-08-01 18:37 | disposition home health service (06) | DRG 470 ==
LOC: 3E 07:15 → ASU 07:15 → OBSVTOIN 11:14